=== PATIENT | female | born 1945 | race Caucasian/White ===

== ENCOUNTER 2023-06-28 14:09 | Observation (INO) | payer OTHER ==
--- OUTSIDE RECORDS SUMMARY | 2023-06-28 14:14 | XMS REPORT | Continuity of Care Document ---
:1945 Author Organization [facility] t Address [address] [place] [address] [address] [place] [address] Care Team Providers Name Role Phone Jose Miguel Dorman MD Primary Care Physician FOG_A_Provider Attending Clinician Unavailable Tristen Greenberg Attending Clinician Unavailable Jose Miguel Dorman V Attending Clinician Unavailable Kojo Centeno Attending Clinician [phone] Kojo Centeno Attending Clinician Unavailable Benny Vila MD Attending Clinician Esteban Martinez Attending Clinician Unavailable FOG_A_Provider Admitting Clinician Unavailable Tristen Greenberg Admitting Clinician Unavailable Jose Miguel Dorman V Admitting Clinician Unavailable Kojo Centeno Admitting Clinician Unavailable Physician, No Primary or Family Admitting Clinician Unavaila ble Payers Payer Name Policy Type Policy Number Effective Date Expiration Date S floresita MCCOLLUM (MEDICARE [id number] 2022 REPLACEMENT PPO) 00:00:00 EPISODE SOLUTIONS [id number] MEDICARE B-[place]: [id number] 2010 NOVITAS [employer]IONS 00:00:00 [employer] (INDEMNITY) [id number] 2002 00:00:00 Problems Condition Condition Condition Status Onset Resolution Last Treating Co mments Source Name Details Category Date Date Treatment Clinician Date Osteoarthr Osteoarthr Problem Active 2021-11 A zalea itis of itis of 0-28 [facility] left hip Left Hip 00:00: dic joint Joint 00 [facility] Low back Low Back Problem Active [facility] a pain Pain 6-16 [facility] 00:00: dic 00 [facility] 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 00 [facility] Back Back Problem Active [facility] fusion Fusion 2-03 [facility] 00:00: dic 00 [facility] Degenerati Degenerati Problem Active 2020-11 A zalea on of on of 2-30 [facility] lumbar Lumbar 00:00: dic interverte Interverte 00 Sp orts bral disc bral Disc Medi chad e Spinal Spinal Problem Active 2020-11 [facility] stenosis Stenosis 2-30 Orthop e of lumbar of Lumbar 00:00: dic region Region 00 [facility] Lumbar Lumbar Problem Active 2020-11 [facility] radiculopa Radiculopa 2-30 Or thope thy thy 00:00: dic 00 [facility] Idiopathic Idiopathic Problem Active 2020-11 A zalea scoliosis Scoliosis 2-30 Orth ope 00:00: dic 00 [facility] Strain of Strain of Problem Active Aza jorge calf Calf 9-23 [facility] muscle Muscle 00:00: dic 00 [facility] Essential Essential Disease Active 2016-11 [facility] hypertensi hypertensi 0-24 [facility] on on 00[facility]: [facility]osp[facility] 00 l Hyperlipid Hyperlipid Disease Active 2016-11 M [facility] emia emia 0-24 st 00:00: Hospita 00 l SOB SOB Disease Active 2016-11 [facility] (shortness (shortness 0-24 st of breath) of breath) 00:00: Ho spita 00 l Allergies, Adverse Reactions, Alerts Allergy Allergy Status Severity Reaction(s) Onset Inactive Treating Comm ents Source Name Type Date Date Clinician No Known DA Active U 2021-11 [facility] 2[facility]16 Clear Allergie 00:00: Wolf s 00 [facility] lactose FA Active SV ABDOMINAL 2021-11 [facility] PAIN 2-16 Clear 00:00: Wolf 00 [facility] No Known DA Active U [facility] 1-18 [place] Allergie 00:00: d s 00 [facility] No Known DA Active U [facility] [place] Lactose Allergy Active [facility] to [facility] substanc dic e Sports Medicin e Social History Social Habit Start Date Stop Date Quantity Comments Source Gender identity [facility] Sexual [facility] History of Social 2021-10-26 2021-10-[address] function 00:00:00 00:00:00 Hospital Tobacco use and 2021-10-26 2021-10-26 Smokeless [facility] 00:00:00 00:00:00 tobacco non-user Hospital Sex Assigned At [birth year] [facility] 00:[facility] Smoking Status Start Date Stop Date Source Never Smoker [facility] Medications Ordered Filled Start Stop Current Ordering Indication Dosage Frequency Signature Comments Components Source Medication Medication Date Date Medication? Clinician (SIG) Name Name DULoxetine Yes TAKE ONE [facility] (CYMBALTA) 8-[address] 60 MG 00:00: MOUTH [facility]osp[facility] capsule 00 TWICE A l DAY AT 12 HOUR INTERVALS DULoxetine Yes TAKE ONE [facility] (CYMBALTA) 8-[address] 60 MG 00:00: MOUTH [facility] capsule 00 TWICE A l DAY AT 12 HOUR INTERVALS DULoxetine Yes TAKE ONE [facility] (CYMBALTA) 8-[address] 60 MG 00:00: MOUTH [facility] capsule 00 TWICE A l DAY AT 12 HOUR INTERVALS DULoxetine Yes TAKE ONE [facility] (CYMBALTA) 8-[address] 60 MG 00:00: MOUTH [facility]osp[facility] capsule 00 TWICE A l DAY AT 12 HOUR INTERVALS levocetiriz Yes 5mg QD Take 5 mg M ethodi ine (XYZAL) 8-[address] 5 MG tablet 00:00: once Hospit a 00 daily. l levocetiriz 2017-0 Yes 5mg QD Take 5 mg M [facility]i ine (XYZAL) 8-[address] 5 MG tablet 00:00: once Hospit a 00 daily. l levocetiriz 2017-0 Yes 5mg QD Take 5 mg M ethodi ine (XYZAL) 8-[address] 5 MG tablet 00:00: once Hospit a 00 daily. l levocetiriz 2017-0 Yes 5mg QD Take 5 mg M ethodi ine (XYZAL) 8-[address] 5 MG tablet 00:00: once Hospit a 00 daily. l montelukast 2017-0 Yes 10mg QD Take 10 mg [facility] (SINGULAIR) 8-[address] 10 mg 00:00: once [facility]ospita tablet 00 daily. l montelukast 2017-0 Yes 10mg QD Take 10 mg [facility] (SINGULAIR) 8-[address] 10 mg 00:00: once [facility]ospita tablet 00 daily. l montelukast 2017-0 Yes 10mg QD Take 10 mg [facility] (SINGULAIR) 8-[address] 10 mg 00:00: once [facility]ospita tablet 00 daily. l montelukast 2017-0 Yes 10mg QD Take 10 mg [facility] (SINGULAIR) 8-[address] 10 mg 00:00: once [facility]ospita tablet 00 daily. l ascorbic ascorbic No ascorbic Aza jorge acid acid acid [facility] (vitamin C) (vitamin C) (vitamin dic 1,000 mg 1,000 mg C) 1,000 Spo rts tablet RX tablet RX mg tablet Medicin by other MD by other RX by e other aspirin 81 aspirin 81 No aspirin 81 [facility]indi mg mg mg [facility] tablet,kelli tablet,kelli tablet,del dic yed release yed release ayed S ports RX by other RX by other release RX Medicin MD CORNEJO by other e Centrgrzegorz Centrgrzegorz No Centrum Sindi Silver Silver Silver [facility] tablet RX tablet RX tablet RX dic by other by other by other Sports Medicania kelley ciprofloxac ciprofloxac No ciprofloxa Sindi in 500 mg in 500 mg chad 500 mg [facility] tablet TAKE tablet TAKE tablet dic 1 TABLET BY 1 TABLET BY TAKE 1 Sports MOUTH TWICE MOUTH TWICE TABLET BY Medicin A DAY A DAY MOUTH e TWICE A DAY clotrimazol clotrimazol No clotrimazo Sindi e-betametha e-betametha le-betamet Orthope sone 1 sone 1 hasone 1 dic %-0.05 % %-0.05 % %-0.05 % Spo rts topical topical topical Medici n cream cream cream e TOPICALLY TOPICALLY TOPICALLY TO FUNGAL TO FUNGAL TO FUNGAL SKIN SKIN SKIN LESIONS LESIONS LESIONS TWICE A DAY TWICE A DAY TWICE A DAY duloxetine duloxetine No duloxetine Sindi 60 mg 60 mg 60 mg [facility] capsule,del capsule,del capsule,de dic ayed ayed layed Sports release release release Medici n TAKE 1 TAKE 1 TAKE 1 e CAPSULE BY CAPSULE BY CAPSULE BY MOUTH EVERY MOUTH EVERY MOUTH 12 HOURS 12 HOURS EVERY 12 HOURS esomeprazol esomeprazol No esomeprazo Sindi e magnesium e magnesium le O r[facility]ope 20 mg 20 mg magnesium dic capsule,del capsule,del 20 mg Sports ayed ayed capsule,de Medicin release RX release RX layed e by other MD by other MD release RX by other MD ferrous ferrous No ferrous [facility]indi gluconate gluconate gluconate [facility] 324 mg (38 324 mg (38 324 mg (38 dic mg iron) mg iron) mg iron) Spo rts tablet TAKE tablet TAKE tablet Medicin 1 TABLET BY 1 TABLET BY TAKE 1 e MOUTH EVERY MOUTH EVERY TABLET BY DAY WITH DAY WITH MOUTH WATER OR WATER OR EVERY DAY JUICE JUICE WITH WATER BETWEEN BETWEEN OR JUICE MEALS MEALS BETWEEN MEALS gabapentin gabapentin No gabapentin Sindi 100 mg 100 mg 100 mg [facility] capsule capsule capsule dic TAKE 1 TAKE 1 TAKE 1 Sports CAPSULE BY CAPSULE BY CAPSULE BY Medicin MOUTH THREE MOUTH THREE MOUTH e TIMES A DAY TIMES A DAY THREE TIMES A DAY gabapentin gabapentin No gabapentin Sindi 300 mg 300 mg 300 mg [facility] capsule capsule capsule dic TAKE 1 TAKE 1 TAKE 1 Sports CAPSULE BY CAPSULE BY CAPSULE BY Medicin MOUTH THREE MOUTH THREE MOUTH e TIMES A DAY TIMES A DAY THREE TIMES A DAY hydrocodone hydrocodone No hydrocodon Sindi 10 10 e 10 [facility] mg-acetamin mg-acetamin mg-acetami dic ophen 325 ophen 325 nophen 325 Sports mg tablet mg tablet mg tablet Medicin TAKE 1 TAKE 1 TAKE 1 e TABLET BY TABLET BY TABLET BY MOUTH FOUR MOUTH FOUR MOUTH FOUR TIMES A DAY TIMES A DAY TIMES A FOR POST OP FOR POST OP DAY FOR PAIN PAIN POST OP PAIN levothyroxi levothyroxi No levothyrox Sindi ne 25 mcg ne 25 mcg ine 25 mcg [facility] tablet TAKE tablet TAKE tablet dic 1 TABLET BY 1 TABLET BY TAKE 1 Sports MOUTH EVERY MOUTH EVERY TABLET BY Medicin DAY IN THE DAY IN THE MOUTH e MORNING ON MORNING ON EVERY DAY EMPTY EMPTY IN THE STOMACH STOMACH MORNING ON EMPTY STOMACH methylpredn methylpredn No methylpred Sindi isolone 4 isolone 4 nisolone 4 [facility] mg tablets mg tablets mg tablets dic in a dose in a dose in a dose Sports pack TAKE 6 pack TAKE 6 pack TAKE Medicin TABLETS ON TABLETS ON 6 TABLETS e DAY 1 DAY 1 ON DAY 1 DIRECTED ON DIRECTED ON PACKAGE AND PACKAGE AND DIRECTED DECREASE BY DECREASE BY ON PACKAGE 1 TAB EACH 1 TAB EACH AND DAY FOR A DAY FOR A DECREASE TOTAL OF 6 TOTAL OF 6 BY 1 TAB DAYS DAYS EACH DAY FOR A TOTAL OF 6 DAYS montelukast montelukast No montelukas Sindi 10 mg 10 mg t 10 mg [facility] tablet TAKE tablet TAKE tablet dic 1 TABLET BY 1 TABLET BY TAKE 1 Sports MOUTH EVERY MOUTH EVERY TABLET BY Medicin DAY DAY MOUTH e EVERY DAY promethazin promethazin No promethazi Sindi e 25 mg e 25 mg ne 25 mg Ortho pe tablet TAKE tablet TAKE tablet dic 1 TABLET BY 1 TABLET BY TAKE 1 Sports MOUTH 3 MOUTH 3 TABLET BY Medi chad TIMES A DAY TIMES A DAY MOUTH 3 e NEEDED NEEDED TIMES A FOR NAUSEA FOR NAUSEA DAY AND AND NEEDED FOR VOMITING VOMITING NAUSEA AND VOMITING triamcinolo triamcinolo No triamcinol Sindi ne ne one [facility] acetonide acetonide acetonide dic 0.1 % 0.1 % 0.1 % Sports topical topical topical Medici n cream APPLY cream APPLY cream e TO AFFECTED TO AFFECTED APPLY TO AREA EVERY AREA EVERY AFFECTED DAY DAY AREA EVERY NEEDED NEEDED DAY NEEDED ascorbic ascorbic No ascorbic Aza jorge acid acid acid [facility] (vitamin C) (vitamin C) (vitamin dic 1,000 mg 1,000 mg C) 1,000 Spo rts tablet RX tablet RX mg tablet Medicin by other MD by devante CORNEJO RX by e other aspirin 81 aspirin 81 No aspirin 81 Sindi mg mg mg [facility] tablet,kelli tablet,kelli tablet,del dic yed release yed release ayed S ports TAKE 1 TAKE 1 release Medicin TABLET BY TABLET BY TAKE 1 e MOUTH TWICE MOUTH TWICE TABLET BY A DAY WITH A DAY WITH MOUTH FOOD TO FOOD TO TWICE A PREVENT DVT PREVENT DVT DAY WITH FOOD TO PREVENT DVT Cent[facility] Cent[facility] No Centrum [facility] Silver Silver Silver [facility] tablet RX tablet RX tablet RX dic by other MD by other MD by other Sports MD Medicin e ciprofloxac ciprofloxac No ciprofloxa Sindi in 500 mg in 500 mg chad 500 mg [facility] tablet TAKE tablet TAKE tablet dic 1 TABLET BY 1 TABLET BY TAKE 1 Sports MOUTH TWICE MOUTH TWICE TABLET BY Medicin A DAY A DAY MOUTH e TWICE A DAY clotrimazol clotrimazol No clotrimazo Sindi e-betametha e-betametha le-betamet [facility] sone 1 sone 1 hasone 1 dic %-0.05 % %-0.05 % %-0.05 % Spo rts topical topical topical Medici n cream cream cream e TOPICALLY TOPICALLY TOPICALLY TO FUNGAL TO FUNGAL TO FUNGAL SKIN SKIN SKIN LESIONS LESIONS LESIONS TWICE A DAY TWICE A DAY TWICE A DAY doxycycline doxycycline No doxycyclin Sindi hyclate 100 hyclate 100 e hyclate [facility] mg capsule mg capsule 100 mg d ic TAKE 1 TAKE 1 capsule Sports CAPSULE BY CAPSULE BY TAKE 1 M edicin MOUTH TWICE MOUTH TWICE CAPSULE BY e A DAY A DAY MOUTH TWICE A DAY duloxetine duloxetine No duloxetine Sindi 60 mg 60 mg 60 mg [facility] capsule,del capsule,del capsule,de dic ayed ayed layed Sports release release release Medici n TAKE 1 TAKE 1 TAKE 1 e CAPSULE BY CAPSULE BY CAPSULE BY MOUTH EVERY MOUTH EVERY MOUTH 12 HOURS 12 HOURS EVERY 12 HOURS esomeprazol esomeprazol No esomeprazo Sindi e magnesium e magnesium le O r[facility]ope 20 mg 20 mg magnesium dic capsule,del capsule,del 20 mg Sports ayed ayed capsule,de Medicin release RX release RX layed e by other MD by other MD release RX by other MD ferrous ferrous No ferrous Sindi gluconate gluconate gluconate [facility] 324 mg (38 324 mg (38 324 mg (38 dic mg iron) mg iron) mg iron) Spo rts tablet TAKE tablet TAKE tablet Medicin 1 TABLET BY 1 TABLET BY TAKE 1 e MOUTH EVERY MOUTH EVERY TABLET BY DAY WITH DAY WITH MOUTH WATER OR WATER OR EVERY DAY JUICE JUICE WITH WATER BETWEEN BETWEEN OR JUICE MEALS MEALS BETWEEN MEALS gabapentin gabapentin No gabapentin Sindi 100 mg 100 mg 100 mg [facility] capsule capsule capsule dic TAKE 1 TAKE 1 TAKE 1 Sports CAPSULE BY CAPSULE BY CAPSULE BY Medicin MOUTH THREE MOUTH THREE MOUTH e TIMES A DAY TIMES A DAY THREE TIMES A DAY gabapentin gabapentin No gabapentin Sindi 300 mg 300 mg 300 mg [facility] capsule capsule capsule dic TAKE 1 TAKE 1 TAKE 1 Sports CAPSULE BY CAPSULE BY CAPSULE BY Medicin MOUTH THREE MOUTH THREE MOUTH e TIMES A DAY TIMES A DAY THREE TIMES A DAY hydrocodone hydrocodone No hydrocodon Sindi 10 10 e 10 [facility] mg-acetamin mg-acetamin mg-acetami dic ophen 325 ophen 325 nophen 325 Sports mg tablet mg tablet mg tablet Medicin TAKE ONE TAKE ONE TAKE ONE e TABLET TABLET TABLET EVERY 6 EVERY 6 EVERY 6 HOURS ONLY HOURS ONLY HOURS ONLY FOR FOR FOR BREAKTHROUG BREAKTHROUG BREAKTHROU H PAIN H PAIN GH PAIN levothyroxi levothyroxi No levothyrox Sindi ne 25 mcg ne 25 mcg ine 25 mcg [facility] tablet TAKE tablet TAKE tablet dic 1 TABLET BY 1 TABLET BY TAKE 1 Sports MOUTH EVERY MOUTH EVERY TABLET BY Medicin DAY IN THE DAY IN THE MOUTH e MORNING ON MORNING ON EVERY DAY EMPTY EMPTY IN THE STOMACH STOMACH MORNING ON EMPTY STOMACH meloxicam meloxicam No meloxicam Sindi 15 mg 15 mg 15 mg [facility] tablet TAKE tablet TAKE tablet dic 1 TABLET BY 1 TABLET BY TAKE 1 Sports MOUTH EVERY MOUTH EVERY TABLET BY Medicin DAY DAY MOUTH e EVERY DAY methocarbam methocarbam No methocarba Sindi ol 500 mg ol 500 mg mol 500 mg [facility] tablet TAKE tablet TAKE tablet dic 1 TABLET BY 1 TABLET BY TAKE 1 Sports MOUTH 3 MOUTH 3 TABLET BY Medi chad TIMES A DAY TIMES A DAY MOUTH 3 e NEEDED NEEDED TIMES A FOR MUSCLE FOR MUSCLE DAY SPASMS SPASMS NEEDED FOR MUSCLE SPASMS methylpredn methylpredn No methylpred Sindi isolone 4 isolone 4 nisolone 4 [facility] mg tablets mg tablets mg tablets dic in a dose in a dose in a dose Sports pack TAKE 6 pack TAKE 6 pack TAKE Medicin TABLETS ON TABLETS ON 6 TABLETS e DAY 1 DAY 1 ON DAY 1 DIRECTED ON DIRECTED ON PACKAGE AND PACKAGE AND DIRECTED DECREASE BY DECREASE BY ON PACKAGE 1 TAB EACH 1 TAB EACH AND DAY FOR A DAY FOR A DECREASE TOTAL OF 6 TOTAL OF 6 BY 1 TAB DAYS DAYS EACH DAY FOR A TOTAL OF 6 DAYS montelukast montelukast No montelukas Sindi 10 mg 10 mg t 10 mg [facility] tablet TAKE tablet TAKE tablet dic 1 TABLET BY 1 TABLET BY TAKE 1 Sports MOUTH EVERY MOUTH EVERY TABLET BY Medicin DAY DAY MOUTH e EVERY DAY promethazin promethazin No promethazi Sindi e 25 mg e 25 mg ne 25 mg Ortho pe tablet TAKE tablet TAKE tablet dic 1 TABLET BY 1 TABLET BY TAKE 1 Sports MOUTH 3 MOUTH 3 TABLET BY Medi chad TIMES A DAY TIMES A DAY MOUTH 3 e NEEDED NEEDED TIMES A FOR NAUSEA FOR NAUSEA DAY AND AND NEEDED FOR VOMITING VOMITING NAUSEA AND VOMITING tramadol 50 tramadol 50 No tramadol Sindi mg tablet mg tablet 50 mg Orth ope TAKE 1 TAKE 1 tablet dic TABLET BY TABLET BY TAKE 1 Spo rts MOUTH EVERY MOUTH EVERY TABLET BY Medicin 4 HOURS 4 HOURS MOUTH e NEEDED FOR NEEDED FOR EVERY 4 PAIN PAIN HOURS NEEDED FOR PAIN triamcinolo triamcinolo No triamcinol Sindi ne ne one [facility] acetonide acetonide acetonide dic 0.1 % 0.1 % 0.1 % Sports topical topical topical Medici n cream APPLY cream APPLY cream e TO AFFECTED TO AFFECTED APPLY TO AREA EVERY AREA EVERY AFFECTED DAY DAY AREA EVERY NEEDED NEEDED DAY NEEDED ascorbic ascorbic No ascorbic Aza jorge acid acid acid [facility] (vitamin C) (vitamin C) (vitamin dic 1,000 mg 1,000 mg C) 1,000 Spo rts tablet RX tablet RX mg tablet Medicin by other by other RX by e other aspirin 81 aspirin 81 No aspirin 81 Sindi mg mg mg [facility] tablet,kelli tablet,kelli tablet,del dic yed release yed release ayed S ports TAKE 1 TAKE 1 release Medicin TABLET BY TABLET BY TAKE 1 e MOUTH TWICE MOUTH TWICE TABLET BY A DAY WITH A DAY WITH MOUTH FOOD TO FOOD TO TWICE A PREVENT DVT PREVENT DVT DAY WITH FOOD TO PREVENT DVT [facility] No Centrum Sindi Silver Silver Silver [facility] tablet RX tablet RX tablet RX dic by other by other MD by other Sports Medicin e ciprofloxac ciprofloxac No ciprofloxa Sindi in 500 mg in 500 mg chad 500 mg [facility] tablet TAKE tablet TAKE tablet dic 1 TABLET BY 1 TABLET BY TAKE 1 Sports MOUTH TWICE MOUTH TWICE TABLET BY Medicin A DAY A DAY MOUTH e TWICE A DAY clotrimazol clotrimazol No clotrimazo Sindi e-betametha e-betametha le-betamet [facility] sone 1 sone 1 hasone 1 dic %-0.05 % %-0.05 % %-0.05 % Spo rts topical topical topical Medici n cream cream cream e TOPICALLY TOPICALLY TOPICALLY TO FUNGAL TO FUNGAL TO FUNGAL SKIN SKIN SKIN LESIONS LESIONS LESIONS TWICE A DAY TWICE A DAY TWICE A DAY doxycycline doxycycline No doxycyclin Sindi hyclate 100 hyclate 100 e hyclate [facility] mg capsule mg capsule 100 mg d ic TAKE 1 TAKE 1 capsule Sports CAPSULE BY CAPSULE BY TAKE 1 M edicin MOUTH TWICE MOUTH TWICE CAPSULE BY e A DAY A DAY MOUTH TWICE A DAY duloxetine duloxetine No duloxetine Sindi 60 mg 60 mg 60 mg [facility] capsule,del capsule,del capsule,de dic ayed ayed layed Sports release release release Medici n TAKE 1 TAKE 1 TAKE 1 e CAPSULE BY CAPSULE BY CAPSULE BY MOUTH EVERY MOUTH EVERY MOUTH 12 HOURS 12 HOURS EVERY 12 HOURS esomeprazol esomeprazol No esomeprazo Sindi e magnesium e magnesium le [facility] 20 mg 20 mg magnesium dic capsule,del capsule,del 20 mg Sports ayed ayed capsule,de Medicin release RX release RX layed e by other MD by other MD release RX by other MD ferrous ferrous No ferrous Sindi gluconate gluconate gluconate [facility] 324 mg (38 324 mg (38 324 mg (38 dic mg iron) mg iron) mg iron) Spo rts tablet TAKE tablet TAKE tablet Medicin 1 TABLET BY 1 TABLET BY TAKE 1 e MOUTH EVERY MOUTH EVERY TABLET BY DAY WITH DAY WITH MOUTH WATER OR WATER OR EVERY DAY JUICE JUICE WITH WATER BETWEEN BETWEEN OR JUICE MEALS MEALS BETWEEN MEALS gabapentin gabapentin No gabapentin Sindi 100 mg 100 mg 100 mg [facility] capsule capsule capsule dic TAKE 1 TAKE 1 TAKE 1 Sports CAPSULE BY CAPSULE BY CAPSULE BY Medicin MOUTH THREE MOUTH THREE MOUTH e TIMES A DAY TIMES A DAY THREE TIMES A DAY gabapentin gabapentin No gabapentin Sindi 300 mg 300 mg 300 mg [facility] capsule capsule capsule dic TAKE 1 TAKE 1 TAKE 1 Sports CAPSULE BY CAPSULE BY CAPSULE BY Medicin MOUTH THREE MOUTH THREE MOUTH e TIMES A DAY TIMES A DAY THREE TIMES A DAY hydrocodone hydrocodone No hydrocodon Sindi 10 10 e 10 [facility] mg-acetamin mg-acetamin mg-acetami dic ophen 325 ophen 325 nophen 325 Sports mg tablet mg tablet mg tablet Medicin TAKE ONE TAKE ONE TAKE ONE e TABLET TABLET TABLET EVERY 6 EVERY 6 EVERY 6 HOURS ONLY HOURS ONLY HOURS ONLY FOR FOR FOR BREAKTHROUG BREAKTHROUG BREAKTHROU H PAIN H PAIN GH PAIN levothyroxi levothyroxi No levothyrox Sindi ne 25 mcg ne 25 mcg ine 25 mcg [facility] tablet TAKE tablet TAKE tablet dic 1 TABLET BY 1 TABLET BY TAKE 1 Sports MOUTH EVERY MOUTH EVERY TABLET BY Medicin DAY IN THE DAY IN THE MOUTH e MORNING ON MORNING ON EVERY DAY EMPTY EMPTY IN THE STOMACH STOMACH MORNING ON EMPTY STOMACH meloxicam meloxicam No meloxicam Sindi 15 mg 15 mg 15 mg [facility] tablet TAKE tablet TAKE tablet dic 1 TABLET BY 1 TABLET BY TAKE 1 Sports MOUTH EVERY MOUTH EVERY TABLET BY Medicin DAY DAY MOUTH e EVERY DAY methocarbam methocarbam No methocarba Sindi ol 500 mg ol 500 mg mol 500 mg [facility] tablet TAKE tablet TAKE tablet dic 1 TABLET BY 1 TABLET BY TAKE 1 Sports MOUTH 3 MOUTH 3 TABLET BY Medi chad TIMES A DAY TIMES A DAY MOUTH 3 e NEEDED NEEDED TIMES A FOR MUSCLE FOR MUSCLE DAY SPASMS SPASMS NEEDED FOR MUSCLE SPASMS methylpredn methylpredn No methylpred Sindi isolone 4 isolone 4 nisolone 4 [facility] mg tablets mg tablets mg tablets dic in a dose in a dose in a dose Sports pack TAKE 6 pack TAKE 6 pack TAKE Medicin TABLETS ON TABLETS ON 6 TABLETS e DAY 1 DAY 1 ON DAY 1 DIRECTED ON DIRECTED ON PACKAGE AND PACKAGE AND DIRECTED DECREASE BY DECREASE BY ON PACKAGE 1 TAB EACH 1 TAB EACH AND DAY FOR A DAY FOR A DECREASE TOTAL OF 6 TOTAL OF 6 BY 1 TAB DAYS DAYS EACH DAY FOR A TOTAL OF 6 DAYS montelukast montelukast No montelukas Sindi 10 mg 10 mg t 10 mg [facility] tablet TAKE tablet TAKE tablet dic 1 TABLET BY 1 TABLET BY TAKE 1 Sports MOUTH EVERY MOUTH EVERY TABLET BY Medicin DAY DAY MOUTH e EVERY DAY promethazin promethazin No promethazi Sindi e 25 mg e 25 mg ne 25 mg Orth[facility] pe tablet TAKE tablet TAKE tablet dic 1 TABLET BY 1 TABLET BY TAKE 1 Sports MOUTH 3 MOUTH 3 TABLET BY Medi chad TIMES A DAY TIMES A DAY MOUTH 3 e NEEDED NEEDED TIMES A FOR NAUSEA FOR NAUSEA DAY AND AND NEEDED FOR VOMITING VOMITING NAUSEA AND VOMITING tramadol 50 tramadol 50 No tramadol Sindi mg tablet mg tablet 50 mg Orth ope TAKE 1 TAKE 1 tablet dic TABLET BY TABLET BY TAKE 1 Spo rts MOUTH EVERY MOUTH EVERY TABLET BY Medicin 4 HOURS 4 HOURS MOUTH e NEEDED FOR NEEDED FOR EVERY 4 PAIN PAIN HOURS NEEDED FOR PAIN triamcinolo triamcinolo No triamcinol Sindi ne ne one [facility] acetonide acetonide acetonide dic 0.1 % 0.1 % 0.1 % Sports topical topical topical Medici n cream APPLY cream APPLY cream e TO AFFECTED TO AFFECTED APPLY TO AREA EVERY AREA EVERY AFFECTED DAY DAY AREA EVERY NEEDED NEEDED DAY NEEDED ascorbic ascorbic No ascorbic Aza jorge acid acid acid [facility] (vitamin C) (vitamin C) (vitamin dic 1,000 mg 1,000 mg C) 1,000 Spo rts tablet RX tablet RX mg tablet Medicin by other MD by other MD RX by e other aspirin 81 aspirin 81 No aspirin 81 Sindi mg mg mg [facility] tablet,kelli tablet,kelli tablet,del dic yed release yed release ayed S ports RX by other RX by other release RX Medicin MD by other e Centrum Centrum No Centrum Sindi Silver Silver Silver [facility] tablet RX tablet RX tablet RX dic by other MD by other MD by other Sports MD Medicin e ciprofloxac ciprofloxac No ciprofloxa Sindi in 500 mg in 500 mg chad 500 mg [facility] tablet TAKE tablet TAKE tablet dic 1 TABLET BY 1 TABLET BY TAKE 1 Sports MOUTH TWICE MOUTH TWICE TABLET BY Medicin A DAY A DAY MOUTH e TWICE A DAY clotrimazol clotrimazol No clotrimazo Sindi e-betametha e-betametha le-betamet [facility] sone 1 sone 1 hasone 1 dic %-0.05 % %-0.05 % %-0.05 % Spo rts topical topical topical Medici n cream cream cream e TOPICALLY TOPICALLY TOPICALLY TO FUNGAL TO FUNGAL TO FUNGAL SKIN SKIN SKIN LESIONS LESIONS LESIONS TWICE A DAY TWICE A DAY TWICE A DAY duloxetine duloxetine No duloxetine Sindi 60 mg 60 mg 60 mg [facility] capsule,del capsule,del capsule,de dic ayed ayed layed Sports release release release Medici n TAKE 1 TAKE 1 TAKE 1 e CAPSULE BY CAPSULE BY CAPSULE BY MOUTH EVERY MOUTH EVERY MOUTH 12 HOURS 12 HOURS EVERY 12 HOURS esomeprazol esomeprazol No esomeprazo Sindi e magnesium e magnesium le [facility] 20 mg 20 mg magnesium dic capsule,del capsule,del 20 mg Sports ayed ayed capsule,de Medicin release RX release RX layed e by other MD by other MD release RX by other MD ferrous ferrous No ferrous Sindi gluconate gluconate gluconate [facility] 324 mg (38 324 mg (38 324 mg (38 dic mg iron) mg iron) mg iron) Spo rts tablet TAKE tablet TAKE tablet Medicin 1 TABLET BY 1 TABLET BY TAKE 1 e MOUTH EVERY MOUTH EVERY TABLET BY DAY WITH DAY WITH MOUTH WATER OR WATER OR EVERY DAY JUICE JUICE WITH WATER BETWEEN BETWEEN OR JUICE MEALS MEALS BETWEEN MEALS gabapentin gabapentin No gabapentin Sindi 100 mg 100 mg 100 mg [facility] capsule capsule capsule dic TAKE 1 TAKE 1 TAKE 1 Sports CAPSULE BY CAPSULE BY CAPSULE BY Medicin MOUTH THREE MOUTH THREE MOUTH e TIMES A DAY TIMES A DAY THREE TIMES A DAY gabapentin gabapentin No gabapentin Sindi 300 mg 300 mg 300 mg [facility] capsule capsule capsule dic TAKE 1 TAKE 1 TAKE 1 Sports CAPSULE BY CAPSULE BY CAPSULE BY Medicin MOUTH THREE MOUTH THREE MOUTH e TIMES A DAY TIMES A DAY THREE TIMES A DAY hydrocodone hydrocodone No hydrocodon Sindi 10 10 e 10 [facility] mg-acetamin mg-acetamin mg-acetami dic ophen 325 ophen 325 nophen 325 Sports mg tablet mg tablet mg tablet Medicin TAKE 1 TAKE 1 TAKE 1 e TABLET BY TABLET BY TABLET BY MOUTH FOUR MOUTH FOUR MOUTH FOUR TIMES A DAY TIMES A DAY TIMES A FOR POST OP FOR POST OP DAY FOR PAIN PAIN POST OP PAIN levothyroxi levothyroxi No levothyrox Sindi ne 25 mcg ne 25 mcg ine 25 mcg [facility] tablet TAKE tablet TAKE tablet dic 1 TABLET BY 1 TABLET BY TAKE 1 Sports MOUTH EVERY MOUTH EVERY TABLET BY Medicin DAY IN THE DAY IN THE MOUTH e MORNING ON MORNING ON EVERY DAY EMPTY EMPTY IN THE STOMACH STOMACH MORNING ON EMPTY STOMACH methylpredn methylpredn No methylpred Sindi isolone 4 isolone 4 nisolone 4 Orthope mg tablets mg tablets mg tablets dic in a dose in a dose in a dose Sports pack TAKE 6 pack TAKE 6 pack TAKE Medicin TABLETS ON TABLETS ON 6 TABLETS e DAY 1 DAY 1 ON DAY 1 DIRECTED ON DIRECTED ON PACKAGE AND PACKAGE AND DIRECTED DECREASE BY DECREASE BY ON PACKAGE 1 TAB EACH 1 TAB EACH AND DAY FOR A DAY FOR A DECREASE TOTAL OF 6 TOTAL OF 6 BY 1 TAB DAYS DAYS EACH DAY FOR A TOTAL OF 6 DAYS montelukast montelukast No montelukas Sindi 10 mg 10 mg t 10 mg [facility] tablet RX tablet RX tablet RX dic by other by other by other Sports MD Yolette kelley promethazin promethazin No promethazi Sindi e 25 mg e 25 mg ne 25 mg Ortho pe tablet TAKE tablet TAKE tablet dic 1 TABLET BY 1 TABLET BY TAKE 1 Sports MOUTH 3 MOUTH 3 TABLET BY Medi chad TIMES A DAY TIMES A DAY MOUTH 3 e NEEDED NEEDED TIMES A FOR NAUSEA FOR NAUSEA DAY AND AND NEEDED FOR VOMITING VOMITING NAUSEA AND VOMITING triamcinolo triamcinolo No triamcinol Sindi ne ne one [facility] acetonide acetonide acetonide dic 0.1 % 0.1 % 0.1 % Sports topical topical topical Medici n cream APPLY cream APPLY cream e TO AFFECTED TO AFFECTED APPLY TO AREA EVERY AREA EVERY AFFECTED DAY DAY AREA EVERY NEEDED NEEDED DAY NEEDED ascorbic ascorbic No ascorbic Aza jorge acid acid acid [facility] (vitamin C) (vitamin C) (vitamin dic 1,000 mg 1,000 mg C) 1,000 Spo rts tablet RX tablet RX mg tablet Medicin by other MD by other MD RX by e devante CORNEJO aspirin 81 aspirin 81 No aspirin 81 Sindi mg mg mg [facility] tablet,kelli tablet,kelli tablet,del dic yed release yed release ayed S ports RX by other RX by other release RX Yolette CORNEJO MD by other e Centrum Centrum No Centrum Sindi Silver Silver Silver [facility] tablet RX tablet RX tablet RX dic by other by other by other Sports MD Yolette kelley ciprofloxac ciprofloxac No ciprofloxa Sindi in 500 mg in 500 mg chad 500 mg [facility] tablet TAKE tablet TAKE tablet dic 1 TABLET BY 1 TABLET BY TAKE 1 Sports MOUTH TWICE MOUTH TWICE TABLET BY Medicin A DAY A DAY MOUTH e TWICE A DAY clotrimazol clotrimazol No clotrimazo Sindi e-betametha e-betametha le-betamet Orth[facility] sone 1 sone 1 hasone 1 dic %-0.05 % %-0.05 % %-0.05 % Spo rts topical topical topical Medici n cream cream cream e TOPICALLY TOPICALLY TOPICALLY TO FUNGAL TO FUNGAL TO FUNGAL SKIN SKIN SKIN LESIONS LESIONS LESIONS TWICE A DAY TWICE A DAY TWICE A DAY duloxetine duloxetine No duloxetine Sindi 60 mg 60 mg 60 mg [facility] capsule,del capsule,del capsule,de dic ayed ayed layed Sports release release release Medici n TAKE 1 TAKE 1 TAKE 1 e CAPSULE BY CAPSULE BY CAPSULE BY MOUTH EVERY MOUTH EVERY MOUTH 12 HOURS 12 HOURS EVERY 12 HOURS esomeprazol esomeprazol No esomeprazo Sindi e magnesium e magnesium le O rthope 20 mg 20 mg magnesium dic capsule,del capsule,del 20 mg Sports ayed ayed capsule,de Medicin release RX release RX layed e by other MD by other MD release RX by other MD ferrous ferrous No ferrous Sindi gluconate gluconate gluconate [facility] 324 mg (38 324 mg (38 324 mg (38 dic mg iron) mg iron) mg iron) Spo rts tablet TAKE tablet TAKE tablet Medicin 1 TABLET BY 1 TABLET BY TAKE 1 e MOUTH EVERY MOUTH EVERY TABLET BY DAY WITH DAY WITH MOUTH WATER OR WATER OR EVERY DAY JUICE JUICE WITH WATER BETWEEN BETWEEN OR JUICE MEALS MEALS BETWEEN MEALS gabapentin gabapentin No gabapentin Sindi 100 mg 100 mg 100 mg [facility] capsule capsule capsule dic TAKE 1 TAKE 1 TAKE 1 Sports CAPSULE BY CAPSULE BY CAPSULE BY Medicin MOUTH THREE MOUTH THREE MOUTH e TIMES A DAY TIMES A DAY THREE TIMES A DAY gabapentin gabapentin No 1capsul TID gabapentin Sindi 300 mg 300 mg e(s) 300 mg [facility] capsule capsule capsule dic Take 1 Take 1 Take 1 Sports capsule 3 capsule 3 capsule 3 Medicin times a day times a day times a e by oral by oral day by route. TAKE route. TAKE oral route. INDICATED INDICATED TAKE BY DOCTOR BY DOCTOR INDICATED BY DOCTOR hydrocodone hydrocodone No hydrocodon Sindi 10 10 e 10 [facility] mg-acetamin mg-acetamin mg-acetami dic ophen 325 ophen 325 nophen 325 Sports mg tablet mg tablet mg tablet Medicin TAKE 1 TAKE 1 TAKE 1 e TABLET BY TABLET BY TABLET BY MOUTH FOUR MOUTH FOUR MOUTH FOUR TIMES A DAY TIMES A DAY TIMES A FOR POST OP FOR POST OP DAY FOR PAIN PAIN POST OP PAIN methylpredn methylpredn No methylpred Sindi isolone 4 isolone 4 nisolone 4 [facility] mg tablets mg tablets mg tablets dic in a dose in a dose in a dose Sports pack TAKE 6 pack TAKE 6 pack TAKE Medicin TABLETS ON TABLETS ON 6 TABLETS e DAY 1 DAY 1 ON DAY 1 DIRECTED ON DIRECTED ON PACKAGE AND PACKAGE AND DIRECTED DECREASE BY DECREASE BY ON PACKAGE 1 TAB EACH 1 TAB EACH AND DAY FOR A DAY FOR A DECREASE TOTAL OF 6 TOTAL OF 6 BY 1 TAB DAYS DAYS EACH DAY FOR A TOTAL OF 6 DAYS montelukast montelukast No montelukas Sindi 10 mg 10 mg t 10 mg [facility] tablet RX tablet RX tablet RX dic by other MD by other MD by other Sports MD Medicin e triamcinolo triamcinolo No triamcinol Sindi ne ne one Orthope acetonide acetonide acetonide dic 0.1 % 0.1 % 0.1 % Sports topical topical topical Medici n cream APPLY cream APPLY cream e TO AFFECTED TO AFFECTED APPLY TO AREA EVERY AREA EVERY AFFECTED DAY DAY AREA EVERY NEEDED NEEDED DAY NEEDED Immunizations Ordered Immunization Filled Immunization Date Status Commen ts Source Name Name Pick a Student MARAHAnais [facility] 2020-11-23 Completed Meth odist VACCINATION 00:00:00 [facility] COVID-19 MRNA 2020-11-23 Completed Meth odist VACCINATION 00:00:00 [facility] COVID-19 [facility] 2020-11-23 Completed Meth odist VACCINATION 00:00:00 [facility] COVID-19 MRNA 2020-11-23 Completed Meth odist VACCINATION 00:00:00 Hospital Vital Signs Vital Name Observation Time Observation Value Comments Source Height 2022-12-12 00:00:00 63 [in_i] [facility] BMI (Body Mass 2022-12-12 00:00:00 29.9 kg/m2 [facility] Index) Sports Medicine Body Weight 2022-12-12 00:00:00 169 [lb_av] [facility] Height 2022-11-14 00:00:00 63 [in_i] [facility] BMI (Body Mass 2022-11-14 00:00:00 29.9 kg/m2 [facility] Index) Sports Medicine Body Weight 2022-11-14 00:00:00 169 [lb_av] [facility] Height 2022-09-02 00:00:00 63 [in_i] [facility] BMI (Body Mass 2022-09-02 00:00:00 29.9 kg/m2 [facility] Index) Sports Medicine Body Weight 2022-09-02 00:00:00 169 [lb_av] [facility] Height 2022-04-21 00:00:00 63 [in_i] [facility] BMI (Body Mass 2022-04-21 00:00:00 23.9 kg/m2 [facility] Index) Sports Medicine Body Weight 2022-04-21 00:00:00 135 [lb_av] [facility] Systolic blood 2021-10-26 20:30:00 192 mm[Hg] Method is Hospital pressure Diastolic blood 2021-10-26 20:30:00 85 mm[Hg] Metho dist Hospital pressure Heart rate 2021-10-26 20:30:00 87 /min [facility] Body height 2021-10-26 20:28:00 160 cm [facility] Body weight 2021-10-26 20:28:00 81.647 kg [facility] BMI 2021-10-26 20:28:00 31.89 kg/m2 [facility] Procedures Procedure Date / Time Performing Clinician Source Performed XR, hip + pelvis, 2022-12-12 00:00:00 Sindi Orchencho hopedic unilateral, 2 or 3 view Sports M edicine [id number] 2022-10-27 00:00:00 [facility] Total Replacement of 2022-10-27 00:00:00 [facility]opedic Left Hip Joint Sports Medicine XR, hip + pelvis, 2022-09-02 00:00:00 Sindi Orchencho hopedic unilateral, 2 or 3 view Sports M edicine RADEX SPI LUMBOSAC 2022-04-21 00:00:00 [facility] 4 VIEWS Sports Medicine [id number] 2021-11-24 00:00:00 [facility] [id number] 2021-11-24 00:00:00 [facility] [id number] 2021-11-24 00:00:00 [facility] [id number] 2021-11-23 00:00:00 [facility] [id number] 2021-11-23 00:00:00 [facility] [id number] 2021-11-23 00:00:00 [facility] [id number] 2021-11-23 00:00:00 [facility] Back Surgery [facility] Hysterectomy [facility] Wrist Surgery [facility] Plan of Care Planned Activity Planned Date Details Comments Source Future Scheduled Test 2023-06-07 Hepatitis C screening [facility] 03:48:03 (procedure) [code = 017461875] Future Scheduled Test 2023-06-07 SHINGLES VACCINES ([address] [place] [address] 03:48:03 of 2) [code = SHINGLES VACCINES (1 of 2)] Future Scheduled Test 2023-06-07 65+ PNEUMOCOCCAL [facility] 03:48:03 VACCINE (1 - PCV) [code = 65+ PNEUMOCOCCAL VACCINE (1 - PCV)] Future Scheduled Test 2023-06-07 COVID-19 VACCINE (2 - [facility] 03:48:03 Pfizer series) [code = COVID-19 VACCINE (2 - Pfizer series)] Future Scheduled Test 2023-06-07 INFLUENZA VACCINE [facility] 03:48:03 [code = INFLUENZA VACCINE] Future Scheduled Test 2022-10-19 Hepatitis C screening [facility] 03:53:28 (procedure) [code = [id number]] Future Scheduled Test 2022-10-19 SHINGLES VACCINES ([address] [place] [address] 03:53:28 of 2) [code = SHINGLES VACCINES (1 of 2)] Future Scheduled Test 2022-10-19 65+ PNEUMOCOCCAL [facility] 03:53:28 VACCINE (1 - PCV) [code = 65+ PNEUMOCOCCAL VACCINE (1 - PCV)] Future Scheduled Test 2022-10-19 COVID-19 VACCINE (2 - [facility] 03:53:28 Pfizer series) [code = COVID-19 VACCINE (2 - Pfizer series)] Future Scheduled Test 2022-10-19 INFLUENZA VACCINE [facility] 03:53:28 [code = INFLUENZA VACCINE] Future Scheduled Test 2022-10-19 Hepatitis C screening [facility] 03:53:28 (procedure) [code = [id number]] Future Scheduled Test 2022-10-19 SHINGLES VACCINES (1 [facility] 03:53:28 of 2) [code = SHINGLES VACCINES (1 of 2)] Future Scheduled Test 2022-10-19 65+ PNEUMOCOCCAL [facility] 03:53:28 VACCINE (1 - PCV) [code = 65+ PNEUMOCOCCAL VACCINE (1 - PCV)] Future Scheduled Test 2022-10-19 COVID-19 VACCINE (2 [facility] 03:53:28 Pfizer series) [code = COVID-19 VACCINE (2 - Pfizer series)] Future Scheduled Test 2022-10-19 INFLUENZA VACCINE [facility] 03:53:28 [code = INFLUENZA VACCINE] Future Scheduled Test 2022-09-07 HEPATITIS B VACCINES [facility] 04:13:14 (1 of 3 - 3-dose series) [code = HEPATITIS B VACCINES (1 of 3 - 3-dose series)] Future Scheduled Test 2022-09-07 Hepatitis C screening [facility] 04:13:14 (procedure) [code = [id number]] Future Scheduled Test 2022-09-07 SHINGLES VACCINES (1 [facility] 04:13:14 of 2) [code = SHINGLES VACCINES (1 of 2)] Future Scheduled Test 2022-09-07 65+ PNEUMOCOCCAL [facility] 04:13:14 VACCINE (1 - PCV) [code = 65+ PNEUMOCOCCAL VACCINE (1 - PCV)] Future Scheduled Test 2022-09-07 COVID-19 VACCINE (2 [facility] 04:13:14 Pfizer series) [code = COVID-19 VACCINE (2 - Pfizer series)] Future Scheduled Test 2022-09-07 INFLUENZA VACCINE [facility] 04:13:14 [code = INFLUENZA VACCINE] Instructions [facility] Encounters Start End Encounter Admission Attending Care Care Encounter Source Date/Time Date/Time Type Type Clinicians Facility Department ID 2023-02-09 2023-02-09 Outpatient FOG_A_Provi AOSM AOSM [id number] Sindi 00:00:00 00:00:00 conor [id number] Orthop e dic Sports Medicin e 2022-12-12 2022-12-12 Tristen N [place]OSM [place] - Ortho [id number] Sindi 00:00:00 00:00:00 Yajaira Greenberg MD: 7401 [place] [facility] [place] [address] , Ph. [phone] 2022-12-10 2022-12-10 Outpatient FOG_A_Provi AOSM AOSM [id number] Sindi 00:00:00 00:00:00 conor [id number] Orthop e dic Sports Medicin e 2022-12-10 2022-12-10 Outpatient FOG_A_Provi AOSM AOSM 580 [id number] Sindi 00:00:00 00:00:00 conor [id number] Orthop e dic Sports Medicin e 2022-12-03 2022-12-03 Outpatient FOG_A_Provi AOSM AOSM 580 [id number] Sindi 00:00:00 00:00:00 conor [id number] Orthop e dic Sports Medicin e 2022-12-03 2022-12-03 Outpatient FOG_A_Provi AOSM AOSM 580 [id number] Sindi 00:00:00 00:00:00 conor [id number] Orthop e dic Sports Medicin e 2022-11-14 2022-11-14 Outpatient FOG_A_Provi AOSM AOSM [id number] Sindi 00:00:00 00:00:00 conor [id number] Orthop e dic Sports Medicin e 2022-11-14 2022-11-14 Tristen N [place]OSM [place] - Ortho [id number] Sindi 00:00:00 00:00:00 Yajaira Greenberg MD: [address] FOG_Ofc dic [facility] e [address] , Ph. [phone] 2022-10-27 2022-10-28 Inpatient JORGE HeadleyTO SURG [id number] [facility] 08:18:00 12:11:00 Tristen 95 [place] [facility] 2022-10-27 2022-10-27 Outpatient FOG_A_Provi AOSM AOSM [id number] Sindi 00:00:00 00:00:00 conor [id number] Orthop e dic Sports Medicin e 2022-10-27 2022-10-27 Outpatient FOG_A_Provi AOSM AOSM 580 [id number] Sindi 00:00:00 00:00:00 conor [id number] Orthop e dic Sports Medicin e 2022-10-27 2022-10-27 Outpatient FOG_A_Provi AOSM AOSM [id number] Sindi 00:00:00 00:00:00 conor [id number] Orthop e dic Sports Medicin e 2022-10-27 2022-10-27 Tristen N [place]OSM [place] - Ortho [id number] Sindi 00:00:00 00:00:00 Yajaira Greenberg MD: 7401 FOG_Surgery dic [facility] e [address] , Ph. [phone] 2022-10-21 2022-10-21 Outpatient RADHA Greenberg DAPHNE LABO [id number] [facility] 16:48:00 16:48:00 Trisetn 24 [facility] 2022-10-21 2022-10-21 Outpatient JORGE HeadleyJULIEN 3DAY [id number] [facility] 09:00:00 10:00:00 Tristen 49 [place] [facility] 2022-10-14 2022-10-14 Outpatient FOG_A_Provi AOSM AOSM [id number] Sindi 00:00:00 00:00:00 conor [id number] Orthop e dic Sports Medicin e 2022-10-14 2022-10-14 Outpatient FOG_A_Provi AOSM AOSM 580 [id number] Sindi 00:00:00 00:00:00 conor [id number] Orthop e dic Sports Medicin e 2022-10-14 2022-10-14 Outpatient FOG_A_Provi AOSM AOSM 580 [id number] Sindi 00:00:00 00:00:00 conor [id number] Orthop e dic Sports Medicin e 2022-09-25 2022-09-25 Outpatient FOG_A_Provi AOSM AOSM [id number] Sindi 00:00:00 00:00:00 conor [id number] Orthop e dic Sports Medicin e 2022-09-23 2022-09-23 Outpatient FOG_A_Provi AOSM AOSM 580 [id number] Sindi 00:00:00 00:00:00 conor [id number] Orthop e dic Sports Medicin e 2022-09-12 2022-09-12 Outpatient RADHA Dorman [facility] [id number] [facility] 08:00:00 08:00:00 Jose Miguel Iniguez [facility] [place] 2022-09-02 2022-09-02 Outpatient FOG_A_Provi AOSM AOSM [id number] Sindi 00:00:00 00:00:00 conor [id number] Orthop e dic Sports Medicin e 2022-09-02 2022-09-02 Tristen N [place]OSM [place] - Ortho [id number] Sindi 00:00:00 00:00:00 Yajaira Greenberg MD: 7401 FOG_Ofc dic [facility] [place] [address] , Ph. [phone] 2022-09-01 2022-09-01 Outpatient FOG_A_Provi AOSM AOSM 580 [id number] Sindi 00:00:00 00:00:00 conor [id number] Orthop e dic Sports Medicin e 2022-08-29 2022-08-29 Outpatient FOG_A_Provi AOSM AOSM 580 [id number] Sindi 00:00:00 00:00:00 conor [id number] Orthop e dic Sports Medicin e 2022-04-22 2022-04-22 Outpatient FOG_A_Provi AOSM AOSM 580 [id number] Sindi 00:00:00 00:00:00 conor [id number] Orthop e dic Sports Medicin e 2022-04-21 2022-04-21 Outpatient FOG_A_Provi AOSM AOSM 580 [id number] Sindi 10:35:00 10:35:00 conor [id number] Orthop e dic Sports Medicin e 2022-04-21 2022-04-21 Kojo Freedman [place]OSM [place] - [place] [id number] [facility] 00:00:00 00:00:00 MD Jason: Yajaira Voss - Orthope [address] FOG_Ofc dic [facility] [place] [address] , Ph. [phone] 2022-04-21 2022-04-21 Outpatient SOTERO Centeno AOSM [id number] 00:00:00 00:00:00 Kojo Freedman [id number] 2022-04-20 2022-04-20 Outpatient FOG_A_Provi AOSM AOSM 580 [id number] Sindi 12:11:00 12:11:00 conor [id number] Orthop e dic Sports Medicin e 2022-04-05 2022-04-05 Outpatient FOG_A_Provi AOSM AOSM 580 [id number] Sindi 12:26:00 12:26:00 conor [id number] Orthop e dic Sports Medicin e 2021-11-23 2021-11-28 Inpatient RADHA Centeno ЕЛЕНА ADMI [id number] [facility] 08:03:00 16:33:00 Kojo 23 [place] [facility] 2021-11-16 2021-11-16 Outpatient RADHA Centeno ЕЛЕНА 3DAY [id number] [facility] 09:00:00 23:00:00 Kojo 02 [place] [facility] 2021-11-16 2021-11-16 Outpatient JasonJORGE SIST [id number] [facility] 18:26:00 18:26:00 Kojo 54 [facility] 2021-11-16 2021-11-16 Outpatient Jason JORGE LABO [id number] [facility] 18:25:00 18:25:00 Kojo 23 [facility] 2021-10-26 2021-10-26 Office [place], 1.2.840.1 [id number] [facility] 15:15:00 15:35:15 Visit Benny Angulo [address]274.1.[address] 3.430.2.7 Hospit a .3.249849 l .8 2021-10-26 2021-10-26 Travel 1.2.840.1 1.2.840.517 [id number] [facility] 00:00:00 00:00:[address] 3.430.2.7 0.2.7.3.698 Ho spita .3.035137 084.8 l .8 2021-10-19 2021-10-19 Outpatient [facility] [id number] [facility] 11:25:00 11:25:[address] [place] [address] Orthope [facility] 2021-09-27 2021-09-27 Travel 1.2.840.1 1.2.138.691 [id number] [id number] [facility]i 00:00:00 00:00:[address] 3.430.2.7 0.2.7.3.698 Ho spita .3.815185 084.8 l .8 2021-09-08 2021-09-08 Outpatient RADHA Dorman [facility] [id number] [facility] 08:00:00 08:00:00 Jose Miguel [id number] [facility] [place] 2020-12-14 2020-12-14 Outpatient [facility] [id number] [facility] 00:00:00 00:00:[address] 2020-11-23 2020-11-23 Outpatient [facility] [id number] [facility] 00:00:00 00:00:[address] 2020-05-20 2020-05-20 Outpatient RADHA Martinez [facility] [id number] [facility] 12:00:00 12:00:00 Esteban [id number] [facility] Results Test Description Test Time Test Comments Results Result Sour e Comments - XR PELVIS 11/072022-10-28 VIEWS 08:01:[facility] 1945 Sex: F Patient Name: CHAVO MARTIN Unit No: [id number] EXAMS: CPT CODE: [id number] XR PELVIS 1/2 VIEWS 00502 AP VIEW OF THE PELVIS. COMMENT: In progress total left hip arthroplasty. AP view of the pelvis COMMENT: COMPARISON: No prior exams available. Completed total left hip arthroplasty. Prosthesis appears to be in good position. at 0801 Reported and signed by: Parveen Lemons M.D. CC: Jose Miguel Dorman MD; Tristen Greenberg; Kojo Centeno M.D. Technologist: SONIYA BARR ARRT Transcribed D/ (800) [place] NAME: CHAVO MARTIN [address] [facility] PHYS: Tristen Vazquez MD : 1945 AGE: 77 SEX: F [place], [place] [address] LOC: Y.310 A PHONE #: [phone] EXAM DATE: 10/27/2022 STATUS: ADM IN FAX #: [phone] RAD #: D/C DT PAGE 1 Signed Report Patient Name: CHAVO MARTIN Unit No: [id number] EXAMS: CPT CODE: [id number] XR PELVIS 1/2 VIEWS 87813 (Continued) Orig Print D/T: S: 10/28/2022 (0805) [facility] NAME: CHAVO MARTIN [address] [facility] PHYS: Tristen Vazquez MD : 1945 AGE: 77 SEX: F [place], [place] [address] LOC: Y.310 A PHONE #: [phone] EXAM DATE: 10/27/2022 STATUS: ADM IN FAX #: [phone] RAD #: D/C DT PAGE 2 Signed Report - XR PELVIS /2022-10-28 VIEWS 08:01:00 [facility] 1945 Sex: F Patient Name: CHAVO MARTIN Unit No: [id number] EXAMS: CPT CODE: [id number] XR PELVIS 11/07 VIEWS 26651 AP VIEW OF THE PELVIS. COMMENT: In progress total left hip arthroplasty. AP view of the pelvis COMMENT: COMPARISON: No prior exams available. Completed total left hip arthroplasty. Prosthesis appears to be in good position. at 0801 Reported and signed by: Parveen Lemons M.D. CC: Jose Miguel Dorman MD; Tristen Greenberg; Kojo Centeno M.D. Technologist: Joshua Alvarez(Cassie) Transcribed D/ (800) [facility] NAME: CHAVO MARTIN [address] PHYS: Tristen Vazquez MD : 1945 AGE: 77 SEX: F [place], [place] [address] LOC: Y.310 A PHONE #: [phone] EXAM DATE: 10/27/2022 STATUS: ADM IN FAX #: [phone] RAD #: D/C DT PAGE 1 Signed Report Patient Name: CHAVO MARTIN Unit No: [id number] EXAMS: CPT CODE: [id number] XR PELVIS 1/2 VIEWS 97331 (Continued) Orig Print D/T: S: 10/28/2022 (0805) [facility] NAME: CHAVO MARTIN [address] [facility] PHYS: GOYRO - DionicioTristen galvan MD : 1945 AGE: 77 SEX: F [place], [place] [address] LOC: Y.310 A PHONE #: [phone] EXAM DATE: 10/27/2022 STATUS: ADM IN FAX #: [phone] RAD #: D/C DT PAGE 2 Signed Report HGB HCT 2022-10-28 06:24:00 Test Item Value Reference Range Interpretation Comme nts HEMOGLOBIN (test code = HGB) 9.2 g/dL 12-16 L HEMATOCRIT (test code = HCT) 29.0 % 37-47 L SPECIMEN COMMENT: POD #1Hemoglobin and Hematocrit panel - [id number] 05:10:00 Test Item Value Reference Range Interpretation Comments hemoglobin (test code = hemoglobin) 9.2 g/dL 12-16 L hematocrit (test code = hematocrit) 29.0 % 37-47 L performing lab: (test code = performing lab:) [facility] Sports MedicineCOMPREHENSIVE METABOLIC [id number] 15:29:00 Test Item Value Reference Range Interpretation Comments SODIUM (test code = 139 mmol/L 136-145 N NA) POTASSIUM (test 4.5 mmol/L 3.5-5.1 N code = K) CHLORIDE (test code 102.0 mmol/L 98-107 N = CL) CARBON DIOXIDE 27.7 mmol/L 21-32 N (test code = CO2) GLUCOSE (test code 94 mg/dL 70-110 N = GLU) BLOOD UREA NITROGEN 18 mg/dL 7-18 N (test code = BUN) GLOMERULAR 74.7 >60 The Glomerular FILTRATION RATE Filtration R ate is a (test code = GFR) calculated parameterbased on serum Creatinin e, patient age and sex. GFR valuesless than 60 mL/min/1.73 squ are meters are conchis cative ofChronic Kidne y Disease. Values less than 15 mL/min/1.73squa re meters indicate Kidney failure. The calculation for GFR is based on the CK D-EPI (2020) calculat ion. This formulais race indifferent and is the recommended for patty for GFRby the N ational Kidney Foundati on for Adults.The GFR will not calculate i f the sex is unknown or if thepatient's ag e is <18 years. CREATININE (test 0.81 mg/dL 0.55-1.30 N code = CREAT) TOTAL PROTEIN (test 7.5 g/dL 6.4-8.2 N code = PROT) ALBUMIN (test code 3.4 g/dL 3.4-5.0 N = ALB) GLOBULIN (test code 4.1 g/dL 2.2-4.2 N = GLOB) ALBUMIN/GLOBULIN 0.8 0.7-2.0 N RATIO (test code = A/G) CALCIUM (test code 8.6 mg/dL 8.2-10.1 N = CA) BILIRUBIN TOTAL 0.30 mg/dL 0.2-1.00 N (test code = BILT) SGOT/AST (test code 16.0 U/L 15-37 N = AST) SGPT/ALT (test code 16.0 U/L 12-78 N Please n ote new normal = ALT) range. ALKALINE 112 U/L 46-116 N PHOSPHATASE TOTAL (test code = ALKP) PROTHROMBIN [id number] 15:27:00 Test Item Value Reference Range Interpretation Comments PROTHROMBIN TIME 12.2 secs 9.7-12.5 N Please note new normal PATIENT (test code = range. PTP) INTERNATIONAL NORMAL 1.10 <2.0 RECOMME NDED THERAPEUTIC RATIO (test code = RANGE FOR ORAL INR) ANTICOAGULANTTR EATMENT: CONDITION INRPr ophylaxis of venous throm bosis in 2.0 - 3.0 high- risk medical or surg ical patientsTreatme nt of venous thrombos is 2.0 - 3.0Prevention o f embolism 2.0 - 3.0Prevention o f recurrent embol ism, or 3.0 - 4.5 patie nts with mechanical pros thetic intravascular v olivo IS PATIENT ON ANTICOAGULANTS ? YLIST ANTICOAGULANT/ANTI PLT MEDICATION : AspirinHas Lab been notified if Patient is on Heparin Drip? NOTHROMBOPLASTIN TIME [id number] 15:27:00 Test Item Value Reference Range Interpretation Comments PTT ACTIVATED (test 31.4 secs 26.6-34.6 N Please n ote new code = APTT) normal range. IS PATIENT ON ANTICOAGULANTS ? YLIST ANTICOAGULANT/ANTI PLT MEDICATION : AspirinHas Lab been notified if Patient is on Heparin Drip? NOCBC W/AUTO DIFF 2022-10-21 15:00:00 Test Item Value Reference Range Interpretation Comments WHITE BLOOD CELL (test code = WBC) 5.6 K/mm3 5.8-11.0 L RED BLOOD CELL (test code = RBC) 4.14 M/mm3 4.2-5.4 L HEMOGLOBIN (test code = HGB) 11.7 g/dL 12-16 L HEMATOCRIT (test code = HCT) 36.9 % 37-47 L MEAN CELL VOLUME (test code = MCV) 89 fL 80-98 N MEAN CELL HGB (test code = MCH) 28.3 pg 27-34 N MEAN CELL HGB CONCENTRATION (test 31.7 g/dL 30.8-34.1 N code = MCHC) RED CELL DISTRIBUTION WIDTH (test 14.3 % 11-16 N code = RDW) PLT (test code = PLT) 240 K/mm3 130-400 N MEAN PLATELET VOLUME (test code = 11.0 fL 8.9-12.1 N MPV) NEUTROPHIL % (test code = NT%) 58.5 % 45-70 N LYMPHOCYTE % (test code = LY%) 30.1 % 20-40 N MONOCYTE % (test code = MO%) 8.7 % 3-10 N EOSINOPHIL % (test code = EO%) 1.6 % 1-5 N BASOPHIL % (test code = BA%) 0.7 % 0.0-1.1 N NEUTROPHIL # (test code = NT#) 3.29 K/mm3 2.00-7.50 N LYMPHOCYTE # (test code = LY#) 1.69 K/mm3 1.50-4.00 N MONOCYTE # (test code = MO#) 0.49 K/mm3 0.2-0.8 N EOSINOPHIL # (test code = EO#) 0.09 K/mm3 0.04-0.4 N BASOPHIL # (test code = BA#) 0.04 K/mm3 0.02-0.10 N MANUAL DIFF REQUIRED (test code = NO MANUAL DIFF MDIFF) NUCLEATED RED BLOOD CELL (test 0 % 0-0 N code = NRBC) Prothrombin time (PT)2022-10-21 13:50:00 Test Item Value Reference Range Interpretation Comments prothrombin time patient (test code 12.2 secs 9.7-12.5 = prothrombin time patient) international normal ratio (test 1.10 <2.0 code = international normal ratio) performing lab: (test code = performing lab:) [facility] [id number] 13:50:00 Test Item Value Reference Range Interpretation Comments PTT activated (test code = PTT 31.4 secs 26.6-34.6 activated) performing lab: (test code = performing lab:) [facility]Com[facility] 2000 panel - Serum or [id number] 13:50:00 Test Item Value Reference Range Interpretation Comments sodium (test code = sodium) 139 mmol/L 136-145 potassium (test code = 4.5 mmol/L 3.5-5.1 potassium) chloride (test code = chloride) 102.0 mmol/L 98-107 carbon dioxide (test code = 27.7 mmol/L 21-32 carbon dioxide) glucose (test code = glucose) 94 mg/dL 70-110 blood urea nitrogen (test code = 18 mg/dL 7-18 blood urea nitrogen) glomerular filtration rate (test 74.7 >60 code = glomerular filtration rate) creatinine (test code = 0.81 mg/dL 0.55-1.30 creatinine) total protein (test code = total 7.5 g/dL 6.4-8.2 protein) albumin (test code = albumin) 3.4 g/dL 3.4-5.0 globulin (test code = globulin) 4.1 g/dL 2.2-4.2 albumin/globulin ratio (test 0.8 0.7-2.0 code = albumin/globulin ratio) calcium (test code = calcium) 8.6 mg/dL 8.2-10.1 bilirubin total (test code = 0.30 mg/dL 0.2-1.00 bilirubin total) SGOT/AST (test code = SGOT/AST) 16.0 U/L 15-37 SGPT/ALT (test code = SGPT/ALT) 16.0 U/L 12-78 alkaline phosphatase total (test 112 U/L 46-116 code = alkaline phosphatase total) performing lab: (test code = performing lab:) [facility] CenterMethicillin resistant Staphylococcus aureus [Presence] in Specimen by Organism specific [id number] 13:50:00 Test Item Value Reference Range Interpretation Comments MRSA surveillance screen (test code see below = MRSA surveillance screen) performing lab: (test code = performing lab:) [facility] PCR surveillance [id number] 13:50:00 Test Item Value Reference Range Interpretation Comments mssa PCR surveillance screen (test see below code = mssa PCR surveillance screen) performing lab: (test code = performing lab:) [facility] CenterCB W Auto Differential panel - [id number] 13:50:00 Test Item Value Reference Range Interpretation Comments white blood cell (test code = 5.6 K/mm3 5.8-11.0 L white blood cell) red blood cell (test code = red 4.14 M/mm3 4.2-5.4 L blood cell) hemoglobin (test code = 11.7 g/dL 12-16 L hemoglobin) hematocrit (test code = 36.9 % 37-47 L hematocrit) mean cell volume (test code = mean 89 fL 80-98 cell volume) mean cell HGB (test code = mean 28.3 pg 27-34 cell HGB) mean cell HGB concentration (test 31.7 g/dL 30.8-34.1 code = mean cell HGB concentration) red cell distribution width (test 14.3 % 11-16 code = red cell distribution width) plt (test code = plt) 240 K/mm3 130-400 mean platelet volume (test code = 11.0 fL 8.9-12.1 mean platelet volume) neutrophil % (test code = 58.5 % 45-70 neutrophil %) lymphocyte % (test code = 30.1 % 20-40 lymphocyte %) monocyte % (test code = monocyte 8.7 % 3-10 %) eosinophil % (test code = 1.6 % 1-5 eosinophil %) basophil % (test code = basophil 0.7 % 0.0-1.1 %) neutrophil # (test code = 3.29 K/mm3 2.00-7.50 neutrophil #) lymphocyte # (test code = 1.69 K/mm3 1.50-4.00 lymphocyte #) monocyte # (test code = monocyte 0.49 K/mm3 0.2-0.8 #) eosinophil # (test code = 0.09 K/mm3 0.04-0.4 eosinophil #) basophil # (test code = basophil 0.04 K/mm3 0.02-0.10 #) manual diff required (test code = no manual diff manual diff required) nucleated red blood cell (test 0 % 0-0 code = nucleated red blood cell) performing lab: (test code = performing lab:) [facility] CenterProthrombin time (PT)2022-10-21 13:50:00 Test Item Value Reference Range Interpretation Comments prothrombin time patient (test code 12.2 secs 9.7-12.5 = prothrombin time patient) international normal ratio (test 1.10 <2.0 code = international normal ratio) performing lab: (test code = performing lab:) [facility] Centerthromboplastin time [id number] 13:50:00 Test Item Value Reference Range Interpretation Comments PTT activated (test code = PTT 31.4 secs 26.6-34.6 activated) performing lab: (test code = performing lab:) [facility] CenterCom[facility] 2000 panel - Serum or [id number] 13:50:00 Test Item Value Reference Range Interpretation Comments sodium (test code = sodium) 139 mmol/L 136-145 potassium (test code = 4.5 mmol/L 3.5-5.1 potassium) chloride (test code = chloride) 102.0 mmol/L 98-107 carbon dioxide (test code = 27.7 mmol/L 21-32 carbon dioxide) glucose (test code = glucose) 94 mg/dL 70-110 blood urea nitrogen (test code = 18 mg/dL 7-18 blood urea nitrogen) glomerular filtration rate (test 74.7 >60 code = glomerular filtration rate) creatinine (test code = 0.81 mg/dL 0.55-1.30 creatinine) total protein (test code = total 7.5 g/dL 6.4-8.2 protein) albumin (test code = albumin) 3.4 g/dL 3.4-5.0 globulin (test code = globulin) 4.1 g/dL 2.2-4.2 albumin/globulin ratio (test 0.8 0.7-2.0 code = albumin/globulin ratio) calcium (test code = calcium) 8.6 mg/dL 8.2-10.1 bilirubin total (test code = 0.30 mg/dL 0.2-1.00 bilirubin total) SGOT/AST (test code = SGOT/AST) 16.0 U/L 15-37 SGPT/ALT (test code = SGPT/ALT) 16.0 U/L 12-78 alkaline phosphatase total (test 112 U/L 46-116 code = alkaline phosphatase total) performing lab: (test code = performing lab:) [facility] CenterMethicillin resistant Staphylococcus aureus [Presence] in Specimen by Organism specific [id number] 13:50:00 Test Item Value Reference Range Interpretation Comments MRSA surveillance screen (test code see below = MRSA surveillance screen) performing lab: (test code = performing lab:) [facility] Centerm[facility] PCR surveillance [id number] 13:50:00 Test Item Value Reference Range Interpretation Comments mssa PCR surveillance screen (test see below code = mssa PCR surveillance screen) performing lab: (test code = performing lab:) [facility] CenterHGB [id number] 06:00:00 Test Item Value Reference Range Interpretation Comments HEMOGLOBIN (test code = HGB) 8.7 g/dL 12-16 L HEMATOCRIT (test code = HCT) 28.1 % 37-47 L - XR SPINE 1 V SPEC [id number] 11:57:00 [facility] 1945 Sex: F Patient Name: CHAVO MARTIN Unit No: [id number] EXAMS: CPT CODE: [id number] XR SPINE 1 V SPEC LEVEL [id number] LATERAL INTRAOPERATIVE VIEWS OF THE LUMBAR SPINE Image 1: Surgical markers are at L3 and L4-L5 levels Image 2: Surgical instrumentation is at L2 Image 3: Pedicle screws are in place from L2 to L4 at 1157 Reported and signed by: Parveen Lemons M.D. CC: Kojo Centeno M.D. Technologist: Joshua Alvarez(R) Transcribed D/ (4779) KimSLJ [facility] NAME: CHAVO MARTIN [address] [facility] PHYS: Kojo Kramer MD : 1945 AGE: 76 SEX: F [place] [address] LOC: Y.316 A PHONE #: [phone] EXAM DATE: 11/24/2021 STATUS: ADM IN FAX #: [phone] RAD #:D/C DT PAGE 1 Signed Report Patient Name: CHAVO MARTIN Unit No: [id number] EXAMS: CPT CODE: [id number] XR SPINE 1 V SPEC LEVEL 85821 <Continued> Orig Print D/T: S: 11/25/2021 (1208) [facility] NAME: CHAVO MARTIN [address] [facility] PHYS: Kojo Kramer MD : 1945 AGE: 76 SEX: F [place], [place] [address] LOC: Y.316 A PHONE #: [phone] EXAMDATE: 11/24/2021 STATUS: ADM IN FAX #: [phone] RAD #: D/C DT PAGE 2 Signed Report- XR SPINE 1 V SPEC [id number] 11:57:00 [facility] 1945 Sex: F Patient Name: CHAVO MARTIN Unit No: [id number] EXAMS: CPT CODE: [id number] XR SPINE 1 V SPEC LEVEL [id number] LATERAL INTRAOPERATIVE VIEWS OF THE LUMBAR SPINE Image 1: Surgical markers are at L3 and L4-L5 levels Image 2: Surgical instrumentation is at L2 Image 3: Pedicle screws are in place from L2 to L4 at 1157 Reported and signed by: Parveen Lemons M.D. CC: Kojo Centeno M.D. Technologist: WILL BERMEO(R) Transcribed D/ (1157) [facility]: CHAVO MARTIN [address] [facility] PHYS:Kojo Kramer MD : 1945 AGE: 76 SEX: F [place], [place] [address] LOC: Y.316 A PHONE #: [phone] EXAM DATE: 11/24/2021 STATUS: ADM IN FAX #: [phone] RAD #: D/C DT PAGE 1 Signed Report Patient Name: CHAVO MARTIN Unit No: [id number] EXAMS: CPT CODE: [id number] XR SPINE 1 V SPEC LEVEL 09430 <Continued> Orig Print D/T: S: 11/25/2021 (1201) [facility] NAME: CHAVO MARTIN [address] [facility] PHYS: Kojo Kramer MD : 1945GE: 76 SEX: F [place] [address] LOC: Y.316 A PHONE #: [phone] EXAM DATE: 11/24/2021 STATUS: ADM IN FAX #: [phone] RAD #: D/C DT PAGE 2 Signed Report- XR SPINE 1 V SPEC [id number] 11:57:00 [facility] : 1945 Sex: F Patient Name: CHAVO MARTIN Unit No: [id number] EXAMS: CPT CODE: [id number] XR SPINE 1 V SPEC LEVEL 57409 3 LATERAL INTRAOPERATIVE VIEWS OF THE LUMBAR SPINE Image 1: Surgical markers are at L3 and L4-L5 levels Image 2: Surgical instrumentation is at L2 Image 3: Pedicle screws are in place from L2 to L4 at 1157 Reported and signed by:Parveen Lemons M.D. CC: Kojo Centeno M.D. Technologist: WILL MCGILL RT(Cassie) Transcribed D/ (1157) [facility]: CHAVO MARTIN [address] [facility] PHYS: Kojo Kramer MD : 1945 AGE: 76 SEX: F [place] [address] LOC: Y.316 A PHONE #: [phone] EXAM DATE: 11/24/2021 STATUS: ADM IN FAX #: [phone] RAD #:D/C DT PAGE 1 Signed Report Patient Name: CHAVO MARTIN Unit No: [id number] EXAMS: CPT CODE: [id number] XR SPINE 1 V SPEC LEVEL 05415 <Continued> Orig Print D/T: S: 11/25/2021 (1201) [facility] NAME: CHAVO MARTIN [address] [facility] PHYS: Kojo Kramer MD : 1945 AGE: 76 SEX: F [place], [place] [address] LOC: Y.316 A PHONE #: [phone] EXAMDATE: 11/24/2021 STATUS: ADM IN FAX #: [phone] RAD #: D/C DT PAGE 2 Signed ReportHGB [id number] 06:00:00 Test Item Value Reference Range Interpretation Comments HEMOGLOBIN (test code = HGB) 9.3 g/dL 12-16 L HEMATOCRIT (test code = HCT) 29.9 % 37-47 L BASIC METABOLIC [id number] 06:45:00 Test Item Value Reference Range Interpretation Comments SODIUM (test code = 137 mmol/L 136-145 N NA) POTASSIUM (test code = 4.6 mmol/L 3.5-5.1 N K) CHLORIDE (test code = 102.0 mmol/L 98-107 N CL) CARBON DIOXIDE (test 26.3 mmol/L 21-32 N code = CO2) GLUCOSE (test code = 125 mg/dL 70-110 H GLU) BLOOD UREA NITROGEN 12 mg/dL 7-18 N (test code = BUN) GLOMERULAR FILTRATION 90.2 >60 Unit o f measure: RATE (test code = GFR) mL/mi n/1.73 [id number] Range:Healthy Adults >90 mL/min/1.73 m2 For Chronic Kidney Disease: Stage II Mild Decrease i n GFR 60-90 Stage III Moderate Decrea se in GFR 30-59 St age IV Severe Decre ase in GFR 15-29 St age V Kidney Failur e <15 CREATININE (test code 0.64 mg/dL 0.55-1.30 N = CREAT) CALCIUM (test code = 8.5 mg/dL 8.2-10.1 N CA) HGB [id number] 06:04:00 Test Item Value Reference Range Interpretation Comments HEMOGLOBIN (test code = HGB) 11.7 g/dL 12-16 L HEMATOCRIT (test code = HCT) 36.9 % 37-47 L Novel Coronavirus 2018 [id number] 12:14:00 Test Item Value Reference Range Interpretation Comments Novel Coronavirus Negative Negative Positive r esults are 2019 Inhouse (test indicativ e of the presence code = COVNONPUI) ofSARS-CoV -2 RNA, clinical correlation wit h patient historyand othe r diagnostic info rmation is necessary to determinepatien t infection status. Positiv e results do not rule out bacterial infection or co -infection with other viru ses. Negative result s do not preclude SARS-C oV-2 infection andsh ould not be used as the cynthia e basis for patient managementdecis ions. Negative result s must be combined with otherclinical observations, p atient history, and epidemiological information . Detection of SARS-CoV-2 RNA may be affe cted bysample collec tion methods, storag e conditions, and /or stageof infection. Kassi l RNA mutations, vacc inations, antiviraltherap eutics, antibiotics, chemotherapeuti c orimmunosuppres ligia drugs have not been e valuated for effectson d etection. Results are for the identification of SARS-CoV-2 RNA usingreal-time (RT) polymerase abelino n reaction (PCR) technolog yfor the qualitative det ection of nucleic acids f rom [id number] v irus and diagnosis of SA RS-CoV-2 virusinfection. It is an Emergency Use Authorization ( EUA) testauthorized by the U.S. FDA. Novel Coronavirus 2018 [id number] 12:13:00 Test Item Value Reference Range Interpretation Comments Novel Coronavirus Negative Negative Positive r esults are 2018 Inhouse (test indicativ e of the presence code = COVNONPUI) ofSARS-CoV -2 RNA, clinical correlation wit h patient historyand othe r diagnostic info rmation is necessary to determinepatien t infection status. Positiv e results do not rule out bacterial infection or co -infection with other viru ses. Negative result s do not preclude SARS-C oV-2 infection andsh ould not be used as the cynthia e basis for patient managementdecis ions. Negative result s must be combined with otherclinical observations, p atient history, and epidemiological information . Detection of SARS-CoV-2 RNA may be affe cted bysample collec tion methods, storag e conditions, and /or stageof infection. Kassi l RNA mutations, vacc inations, antiviraltherap eutics, antibiotics, chemotherapeuti c orimmunosuppres ligia drugs have not been e valuated for effectson d etection. Results are for the identification of SARS-CoV-2 RNA usingreal-time (RT) polymerase abelino n reaction (PCR) technolog yfor the qualitative det ection of nucleic acids f rom [id number] v irus and diagnosis of SA RS-CoV-2 virusinfection. It is an Emergency Use Authorization ( EUA) testauthorized by the U.S. FDA. ACUTE HEPATITIS [id number] 22:01:00 Test Item Value Reference Range Interpretation Comments AB HEPATITIS A IGM (test code = NONREACTIVE NONREACTIVE HAVMAB) AG HEPATITIS B SURFACE (test code NONREACTIVE NONREACTIVE = HBSAG) AB HEPATITIS B CORE IGM (test NONREACTIVE NONREACTIVE code = HBCMAB) AB HEPATITIS C (test code = NONREACTIVE NONREACTIVE HCVAB) SIGNAL TO CUTOFF (test code = < 0.02 <0.80 CUTOFF) AB HIV 22:01:00 Test Item Value Reference Range Interpretation Comments AB HIV 1 (test code NONREACTIVE NONREACTIVE DONE AT: [facility] = HIV1AB) [facility] [address] [facility], [place] [address]Done by [employer] aur 4th Gen HIV Ag/Ab C ombo Screen ACUTE HEPATITIS [id number] 22:00:00 Test Item Value Reference Range Interpretation Comments AB HEPATITIS A IGM (test code = NONREACTIVE NONREACTIVE HAVMAB) AG HEPATITIS B SURFACE (test code NONREACTIVE NONREACTIVE = HBSAG) AB HEPATITIS B CORE IGM (test NONREACTIVE NONREACTIVE code = HBCMAB) AB HEPATITIS C (test code = NONREACTIVE NONREACTIVE HCVAB) SIGNAL TO CUTOFF (test code = <0.02 <0.80 N CUTOFF) AB HIV 1 22:00:00 Test Item Value Reference Range Interpretation Comments AB HIV 1 2 (test NONREACTIVE NONREACTIVE [facility] code = [id number]) 4th Gen HIV Ag/Ab Combo Screen COMPREHENSIVE METABOLIC [id number] 19:12:00 Test Item Value Reference Range Interpretation Comments SODIUM (test code = 142 mmol/L 136-145 N NA) POTASSIUM (test code = 4.5 mmol/L 3.5-5.1 N K) CHLORIDE (test code = 102.0 mmol/L 98-107 N CL) CARBON DIOXIDE (test 30.3 mmol/L 21-32 N code = CO2) GLUCOSE (test code = 92 mg/dL 70-110 N GLU) BLOOD UREA NITROGEN 13 mg/dL 7-18 N (test code = BUN) GLOMERULAR FILTRATION 63.3 >60 Unit o f measure: RATE (test code = GFR) mL/mi n/1.73 [id number] Range:Healthy Adults >90 mL/min/1.73 m2 For Chronic Kidney Disease: Stage II Mild Decrease i n GFR 60-90 Stage III Moderate Decrea se in GFR 30-59 St age IV Severe Decre ase in GFR 15-29 St age V Kidney Failur e <15 CREATININE (test code 0.87 mg/dL 0.55-1.30 N = CREAT) TOTAL PROTEIN (test 8.0 g/dL 6.4-8.2 N code = PROT) ALBUMIN (test code = 3.5 g/dL 3.4-5.0 N ALB) GLOBULIN (test code = 4.5 g/dL 2.2-4.2 H GLOB) ALBUMIN/GLOBULIN RATIO 0.8 0.7-2.0 N (test code = A/G) CALCIUM (test code = 8.8 mg/dL 8.2-10.1 N CA) BILIRUBIN TOTAL (test 0.30 mg/dL 0.2-1.00 N code = BILT) SGOT/AST (test code = 24.0 U/L 15-37 N AST) SGPT/ALT (test code = 29.0 U/L 12-78 N Please note new ALT) normal range. ALKALINE PHOSPHATASE 109 U/L 46-116 N TOTAL (test code = ALKP) PROTHROMBIN [id number] 18:47:00 Test Item Value Reference Range Interpretation Comments PROTHROMBIN TIME 11.9 secs 9.7-12.5 N Please note new normal PATIENT (test code = range. PTP) INTERNATIONAL NORMAL 1.07 <2.0 RECOMME NDED THERAPEUTIC RATIO (test code = RANGE FOR ORAL INR) ANTICOAGULANTTR EATMENT: CONDITION INRPr ophylaxis of venous throm bosis in 2.0 - 3.0 high- risk medical or surg ical patientsTreatme nt of venous thrombos is 2.0 - 3.0Prevention o f embolism 2.0 - 3.0Prevention o f recurrent embol ism, or 3.0 - 4.5 patie nts with mechanical pros thetic intravascular v olivo IS PATIENT ON ANTICOAGULANTS ? YLIST ANTICOAGULANT/ANTI PLT MEDICATION : AspirinHas Lab been notified if Patient is on Heparin Drip? NOIf Yes, order CBC, OCCULT BLOOD, PT every other day NTHROMBOPLASTIN TIME [id number] 18:47:00 Test Item Value Reference Range Interpretation Comments PTT ACTIVATED (test 34.8 secs 26.6-34.6 H Please n ote new code = APTT) normal range. IS PATIENT ON ANTICOAGULANTS ? YLIST ANTICOAGULANT/ANTI PLT MEDICATION : AspirinHas Lab been notified if Patient is on Heparin Drip? NOIf Yes, order CBC, OCCULT BLOOD, PT every other day NCBC W/AUTO [id number] 17:34:00 Test Item Value Reference Range Interpretation Comments WHITE BLOOD CELL (test code = WBC) 6.8 K/mm3 5.8-11.0 N RED BLOOD CELL (test code = RBC) 4.48 M/mm3 4.2-5.4 N HEMOGLOBIN (test code = HGB) 12.4 g/dL 12-16 N HEMATOCRIT (test code = HCT) 39.3 % 37-47 N MEAN CELL VOLUME (test code = MCV) 88 fL 80-98 N MEAN CELL HGB (test code = MCH) 27.7 pg 27-34 N MEAN CELL HGB CONCENTRATION (test 31.6 g/dL 30.8-34.1 N code = MCHC) RED CELL DISTRIBUTION WIDTH (test 17.1 % 11-16 H code = RDW) PLT (test code = PLT) 280 K/mm3 130-400 N MEAN PLATELET VOLUME (test code = 10.5 fL 8.9-12.1 N MPV) NEUTROPHIL % (test code = NT%) 57.2 % 45-70 N LYMPHOCYTE % (test code = LY%) 31.4 % 20-40 N MONOCYTE % (test code = MO%) 8.8 % 3-10 N EOSINOPHIL % (test code = EO%) 1.6 % 1-5 N BASOPHIL % (test code = BA%) 0.4 % 0.0-1.1 N NEUTROPHIL # (test code = NT#) 3.90 K/mm3 2.00-7.50 N LYMPHOCYTE # (test code = LY#) 2.14 K/mm3 1.50-4.00 N MONOCYTE # (test code = MO#) 0.60 K/mm3 0.2-0.8 N EOSINOPHIL # (test code = EO#) 0.11 K/mm3 0.04-0.4 N BASOPHIL # (test code = BA#) 0.03 K/mm3 0.02-0.10 N MANUAL DIFF REQUIRED (test code = NO MANUAL DIFF MDIFF) NUCLEATED RED BLOOD CELL (test 0 % 0-0 N code = NRBC) - XR SPINE 2-3 VWS (SCOLIOSIS)2021-10-20 10:14:00 [facility] 1945 Sex: F Patient Name: CHAVO MARTIN Unit No: [id number] EXAMS: CPT CODE: [id number] XR SPINE 2-3 VWS (SCOLIOSIS) 52881 Scoliosis survey 8 views COMMENT: There is a thoracic scoliosis convex right and a lumbar scoliosis convex left. Thoracic kyphosis is also seen. Endplate degenerative change and interspace narrowing is seen from T7 to T12. at 1014 Reported and signed by: Kojo Carnes MD CC: Kojo Centeno M.D. Technologist: RT Jennifer.(R) Transcribed D/ (1014) tJONOL [facility] NAME: CHAVO MARTIN [address] [facility] PHYS: Kojo Kramer MD : 1945 AGE: 76 SEX: F [place] [address] LOC: Y.MRI PHONE #: [phone] EXAM DATE: 10/19/2021 STATUS: DEP CLI FAX #: [phone] RAD #: D/C DT PAGE 1 Signed Report Patient Name: CHAVO MARTIN Unit No: [id number] EXAMS: CPT CODE: [id number] XR SPINE 2-3 VWS (SCOLIOSIS) 22239 <Continued> Orig Print D/T: S: 10/20/2021 (1018) [facility] NAME: CHAVO MARTIN [address] [facility] PHYS: Kojo Kramer MD : 1945 AGE: 76 SEX: F [place], [place] [address] LOC: Y.MRI PHONE #: [phone] EXAM DATE: 10/19/2021 STATUS: DEP CLI FAX #: [phone] RAD #: D/C DT PAGE 2 Signed Report- XR L-SPINE W/BEND [id number] 10:13:00 [facility] 1945 Sex: F Patient Name: CHAVO MARTIN Unit No: [id number] EXAMS: CPT CODE: [id number] XR L-SPINE W/BEND VIEW 96281 LUMBAR SPINE 5 VIEWS PLUS FLEXION AND EXTENSION COMMENT: COMPARISON: No prior exams available. There is a scoliosis convex left. Vertebral body heights are maintained. Space narrowing and endplate degenerative change is seen from T12 to L5. Grade 1 retrolisthesis is present at L1-2, L2-3 and L3-4. There is no evidence for abnormal motion with flexion and extension. at 1013 Reported and signed by: Kojo Carnes MD CC: Kojo Centeno M.D. Technologist: RT Jennifer.(R) Transcribed D/ (1013) t.ARTEMIORCatalinoMethodist [facility] NAME: CHAVO MARTIN [address] [facility] PHYS: Kojo Kramer MD : 1945 AGE: 76 SEX: F [place] [address] LOC: Y.MRI PHONE #: [phone] EXAM DATE: 10/19/2021 STATUS: DEP CLI FAX #: [phone] RAD #: D/C DT PAGE 1 Signed Report Patient Name: CHAVO AMRTIN Unit No: [id number] EXAMS: CPT CODE: [id number] XR L-SPINE W/BEND VIEW 53281 <Continued> Orig Print D/T: S: 10/20/2021 (1016) [facility] NAME: CHAVO MARTIN [address] [facility] PHYS: Kojo Kramer MD : 1945 AGE: 76 SEX: F [place] [address] LOC: Y.MRI PHONE #: [phone] EXAM DATE: 10/19/2021 STATUS: CANDIE CLI FAX #: [phone] RAD #: D/C DT PAGE 2 Signed Report- MRI L-SPINE W/O [id number] 14:09:00 [facility] 1945 Sex: F Patient Name: CHAVO MARTIN Unit No: [id number] EXAMS: CPT CODE: [id number] MRI L-SPINE W/O CONT 87187 DIAGNOSIS: 1. At L1-2 there is disc degeneration and a grade 1 retrolisthesis with disc bulging. Moderate left foraminal narrowing is seen without right-sided stenosis. There is no evidence for canal stenosis. 2. At L2- 3 there is a grade 1 retrolisthesis and disc degeneration with associated disc bulging. Moderate to marked right and mild left foraminal narrowing is seen. Slight narrowing of the centralcanal is seen. 3. At L3-4 there is disc bulging lateralizing 3 mm into the right neural foramen withmild bilateral foraminal narrowing. Mild central canal stenosis is seen with facet degeneration. 4. At L4-5 there is a degenerative grade 1 spondylolisthesis with disc bulging and mild foraminal narrowing. Moderate canal stenosis is seen with facet and ligamentum flavum hypertrophic and degenerative change. 5. At L5-S1 there is mild disc bulging without foraminal narrowing. Facet degeneration is seenwithout canal stenosis. COMMENT: COMPARISON: No prior exams available. Scans were performed in the sagittal and axial planes utilizing T1, T2 and inversion recovery images. Endplate and disc degeneration is seen from L1 to S1. There is a scoliosis convex left. Disc configurations are as described. Spondylitic changes are as noted. The conus is in the expected location. The description these findings assumes a normal count of 5 lumbar type vertebra. at 1409 Reported and signed by: Kojo Carnes MD CC: Kojo Centeno M.D. Te chnologist: KACEY RAMOS MRI Transcribed D/ (5599) t[facility] [address] [facility] PHYS: Kojo Kramer MD : 1945 AGE: 76 SEX: F [place] [address] LOC: Y.MRI PHONE #: [phone] EXAM DATE: 10/19/2021 STATUS: REG CLI FAX #: [phone] RAD #: D/C DT PAGE 1 Signed Report Patient Name: CHAVO MARTINt No: [id number] EXAMS: CPT CODE: [id number] MRI L-SPINE W/O CONT [id number] <Continued> Orig Print D/T: S: 10/19/2021 (6132) [facility] NAME: CHAVO MARTIN [address] [facility] PHYS: Kojo Kramer MD : 1945 AGE: 76 SEX: F [place] [address] LOC: Y.MRI PHONE #: [phone] EXAM DATE: 10/19/2021 STATUS: REG CLI FAX #: [phone] RAD #: D/CDT PAGE 2 Signed Report Notes Date/Time Note Provider Source 2022-10-28 09:45:00-00:00 [facility] ([facility]) Clinical Note REPORT#:[id number] REPORT STATUS: Signed DATE:10/28/22 TIME: 944 PATIENT: CHAVO MARTIN UNIT #: [id number] [facility] AGE: 77 SEX: F ATTEND: Karan Greenberg MD ADM AUTHOR: Lico Moya MD * ALL edits or amendments must be made on the el code-laborationronic/computer document * Clinical Note Note: [facility] Lico mullen M.D. (cell text [phone]) Assessment/Plan 1.) Anemia of acute blood loss- .Hgb 9.2, asympt omatic. 2.) S/p Left AHA- .acute mul ti-modal pain control and followup. Anticoagulation as per Dr. Greenberg. Patient very pleased with out come. 3.) Hypothyroid- .continue on T4 replacement. 4.) OsteoArthritis GERD- .continue on Rx.. * OK for DISCHARGE per Internal Medicine. Prior Events/Overnight: Uneventful. Chief Complaint: No significant complaints. Objective Vital Signs Date Temp Pulse Resp B/P B/P Mean Pulse Ox FiO2 10/27-10/28 97.0-98.4 70-84 14-18 116-156/58-69 77.9-90.2 93-100 24-32 Gen: Alert, oriented, in mild discomfort Neck: No Masses, No Thyromegaly- CV: Regular Rate Rhythm / Edema- no significant Resp: Clear To Ascultation / Normal Respiratory Effort ABD: NonTender / NonDistended MS/Skin: No sign of compartment syndrome / +ankl e DF/PF Other: Labs/X-ray: Laboratory Tests: 10/28 0510 Hematology Hgb (12 - 16 g/dL) 9.2 L Hct (37 - 47 %) 29.0 L Lico Cabral M.D. at [address] [facility] #:[id number] END OF REPORT 2022-10-28 07:35:00-00:00 [facility] ([facility]) Clinical Note REPORT#:[id number] REPORT STATUS: Signed DATE:10/28/22 TIME: 734 PATIENT: CHAVO MARTIN UNIT #: [id number] ROOM/BED: [address] : [birth year] AGE: 77 SEX: F ATTEND: Brown Greenberg MD ADM AUTHOR: Tristen Greenberg MD * ALL edits or amendments must be made on the [employer] document * Clinical Note Note: POD# 1 Joint Arthroplasty Patient well, reports pain is mild-moderate AF VSS Exam: dressing dry/intact Moves toes DF/PF Sensory unchanged A/P: Mobilize with physical Therapy DVT prophylaxis ongoing Following labs do not recover, patient may shower Discharge planning Laboratory Tests 10/28/22 0510: [Embedded Image Not Available] Vital Signs Date Temp Pulse Resp B/P B/P Mean Pulse Ox FiO2 10/27-10/28 97.0-98.4 70-88 14-18 116-197/58-84 80.7-90.2 93-100 24-32 Intake Output 10/28 0700 10/27 2300 10/27 1500 Intake Total 380.00 Output Total 400 Balance -20.00 Intake, IV 320.00 Intake, Oral 60 Number 0 2 Incontinent Voids Number Voids 2 1 Output, Urine 400 Patient 167 lb Weight Weight Standing scale Measurement Method Electronically Signed by Tristen Greenberg MD on at 0736 RPT #:[id number] END OF REPORT 2022-10-28 07:33:00-00:00 [facility] ([facility]) Discharge Summary REPORT#:[id number] REPORT STATUS: Signed DATE:10/28/22 TIME: 0733 PATIENT: CHAVO MARTIN UNIT #: [id number] ROOM/BED: [address] : 45 AGE: 77 SEX: F ATTEND: Karan Greenberg MD ADM AUTHOR: Tristen Greenberg MD * ALL edits or amendments must be made on the [employer] document * General Information Discharge date: 10/28/22 Discharge diagnosis: same Hospital course: Discharge Diagnosis: Left Hip Degenerative Disea se Procedure: Left Hip Arthroplasty Hospital Course and Findings The patient underwent the pr ocedure without incident. Findings were significant for degenerative disease of the hip. The patient was hemodynamically and medically monitored during the postoperative per iod. Anticoagulation was instituted for postoperative DVT prophylaxis. Th e patient was progressively able to tolerate PO pain med ications and the appropriate diet. Physical therapy was instituted, with a progressive ability to am bulate and perform exercises. The patient was eventually deemed stable and saf e for discharge. Despite factors which projected a longer hospita l stay, the patient fulfilled criteria for earlier than expected disch arge, including control of pain, early mobilization with therapy, and a stable hemodyna kendrick status. At discharge, the patient was comfortabl e, with a controlled pain level. There were no chest or abdominal symptoms present. Dis charge physical examination demonstrated stable vital signs and no acute dis tress. The patient had an intact wound with no signifi cant drainage, and no calf tenderness and a negative Sully s sign bilaterally. There were no neurolog ic or vascular deficits or changes from the preoperative state. Disposition: Discharged to home Discharge Condition: Stable Instructions: Instruction sheet given to patient Activity: Ambulate with assistance and walking a id, with weight-bearing as instructed in the hospital. Weight bearing limit ations were reviewed with the patient during the hospitalization. Diet: As per preoperatively Prescriptions 1. Pain Medications: As per discharge prescription, with progressive weaning as pain decreases 2. Anticoagulation: As per discharge prescription, or PreOp anticoa gulant, as discussed with patient Follow-up Appointment: Patient instructe d to arrange appointment for an office visit in 2 weeks Med Rec Med Rec Discharge meds: Stop taking the following medications: ASPIRIN (ASPIRIN) 81 MG TAB.CHEW 81 MILLIGRAM ORAL DAILY. Continue taking these medications: GABAPENTIN (NEURONTIN) 300 MG CAP 300 MILLIGRAM ORAL TWICE DAILY. Instructions: 2 CAPSULES AM AND PM DULoxetine DR (CYMBALTA) 60 MG CAP.DR 60 MILLIGRAM ORAL TWICE DAILY. [URINARY TRACT PROBIO] 25 MCG/1,000 IU 25 MICROGRAM ORAL DAILY. [MARY 2] (Unknown Strength) TAB 1 TABLET ORAL DAILY. as needed for DRY EYES CALCIUM CARBONATE (CALCICARB) 650 MG CALCIUM (1, 625 MG) TAB 750 MILLIGRAM ORAL DAILY. CHOLECALCIFEROL (VITAMIN D3) (VITAMIN D3) 5,000 UNIT TAB 5,000 UNITS ORAL DAILY. MONTELUKAST (SINGULAIR) 10 MG TAB 10 MILLIGRAM ORAL DAILY. MULTIVITAMIN/MIN/IRON/LUTEIN (CENTRUM SILVER ULT RA WOMEN) 1 EACH TAB 1 EACH ORAL DAILY. ZINC GLUCONATE (ZINC GLUCONATE) 50 MG TAB 50 MILLIGRAM ORAL DAILY. BIOTIN (BIOTIN) 800 MCG TAB 10,000 MICROGRAM DAILY. FAMOTIDINE (PEPCID) 20 MG TAB 20 MILLIGRAM ORAL MONDAY, MONDAY, MONDAY. [MITOCHONDRIAL ENERGY] 1 TABLET ORAL DAILY. LEVOTHYROXINE (SYNTHROID) 25 MCG TAB 25 MICROGRAM ORAL DAILY. Start taking the following new medications: ASPIRIN EC (ECOTRIN) 81 MG TAB.EC 81 MILLIGRAM ORAL TWICE DAILY WITH MEALS. Qty = 60 No Refills DOXYCYCLINE HYCLATE (VIBRAMYCIN) 100 MG CAP 100 MILLIGRAM ORAL TWICE DAILY. Days = 7 Qty = 14 No Refills HYDROcodone/APAP (HYDROcodone/APAP 10/325) 10 MG -325 MG TAB 1 TABLET ORAL EVERY SIX HOURS NEEDED as need ed for prn break through pain Qty = 28 No Refills Instructions: one tab every 6 hours only for breakthrough kyle n POLYETHYLENE GLYCOL 3350 (MIRALAX) 17 GRAM POWDE R 17 GRAM ORAL BEDTIME. Days = 30 Qty = 30 No Refills Instructions: please take daily for constipation prevention MELOXICAM (MOBIC) 15 MG TAB 15 MILLIGRAM ORAL DAILY. Qty = 30 No Refills LACTOBACILLUS ACIDOPHILUS (PROBIOTIC ACIDOPHILUS ) 1 CAP CAP 1 CAPSULE ORAL DAILY. Qty = 30 Refills = 6 Instructions: take as bottle directs for 6 weeks after surger y methocarbamoL (ROBAXIN) 500 MG TAB 500 MILLIGRAM ORAL THREE TIMES DAILY NEEDED. as needed for muscle spasm Qty = 28 No Refills traMADol (ULTRAM) 50 MG TAB 50 MILLIGRAM ORAL EVERY 4 HOURS NEEDED. as n eeded for pain Days = 7 Qty = 28 No Refills Discharge Instructions PCP )( Discharge to: Home/Self Care Discharge Instructions Additional Discharge Routines: Attending Follow- Up )( Diet: Regular )( Activity: As Tolerated, C rutches/Walker, Do not Submerge Incision, No Driving Follow-up Appointments Attending Physician: Attending Physician: Tristen Greenberg MD Electronically Signed by Tristen Greenberg MD on at [address] [place] [address] #:[phone] END OF REPORT 2022-10-27 21:41:00-00:00 [facility] ([facility]) Clinical Note REPORT#:[id number] REPORT STATUS: Signed DATE:10/27/22 TIME: 2140 PATIENT: CHAVO MARTIN UNIT #: [id number] ROOM/BED: [facility]-A : 45 AGE: 77 SEX: F ATTEND: Karan Greenberg MD ADM AUTHOR: Lico Moya MD * ALL edits or amendments must be made on the el code-laborationronic/computer document * Clinical Note Note: [facility] Lico mullen MD (cell text [phone]) Internal Medicine Consult at request of : Dr Dasilva in [facility]. Chief Complaint: left hip pain HPI: 77yo W is now s/p Left Anterior Total Hip A rthroplasty (AHA) by Dr. Greenberg. Ms. Martin relates 3 m onths of progressive left hip pain (recently severe, 06/15), worse with activity, and with restricted motion at times in quality. She has failed conservative management. Comorbidities: see below. PmHx: .Osteoarthritis, hypertension, hyperlipide manny ALLERGY: Allergies: lactose (Coded, Severe, ABDOMINAL PAIN, 10/21/22 ) No Known Drug Allergies (Coded, 10/21/22) Home Medications: Home Medications: GABAPENTIN (NEURONTIN) 300 MG PO BID DULoxetine DR (CYMBALTA) 60 MG PO BID [URINARY TRACT PROBIO] 25 MCG PO DAILY [MARY 2] 1 TAB PO DAILY PRN DRY EYES CALCIUM CARBONATE (CALCICARB) 750 MG PO DAILY CHOLECALCIFEROL (VITAMIN D3) (VITAMIN D3) 5,000 UNITS PO DAILY MONTELUKAST (SINGULAIR) 10 MG PO DAILY MULTIVITAMIN/MIN/IRON/LUTEIN (CENTRUM SILVER ULT RA WOMEN) 1 EACH PO DAILY ZINC GLUCONATE 50 MG PO DAILY BIOTIN 10,000 MCG DAILY FAMOTIDINE (PEPCID) 20 MG PO MOWEFR [MITOCHONDRIAL ENERGY] 1 TAB PO DAILY LEVOTHYROXINE (SYNTHROID) 25 MCG PO DAILY ASPIRIN EC (ECOTRIN) 81 MG PO BID MEALS DOXYCYCLINE HYCLATE (VIBRAMYCIN) 100 MG PO BID HYDROcodone/APAP (HYDROcodon e/APAP 10325) 1 TAB PO Q6HPRN PRN prn break through pain POLYETHYLENE GLYCOL 3350 (MIRALAX) 17 GM PO BEDT NATTY MELOXICAM (MOBIC) 15 MG PO DAILY LACTOBACILLUS ACIDOPHILUS (PROBIOTIC ACIDOPHILUS ) 1 CAP PO DAILY methocarbamoL (ROBAXIN) 500 MG PO TID PRN PRN mu scle spasm traMADol (ULTRAM) 50 MG PO Q4H PRN PRN pain SgHx: . back surgery, hysterectomy, wrist surger y SHx: Tob: none FHx: .No significant hx of DVT/PE . Alcohol: none Drugs: none Lives: with . . . Vitals: Vital Signs: Date Time Temp Pulse Resp B/P B/P Pulse O2 O2 F low FiO2 Mean Ox Delivery Rate 10/27 2101 Nasal 3 cannula 10/27 1954 Nasal 3 cannula 10/27 1954 83 16 116/63 80.7 93 10/27 1710 99 Nasal 3 32 cannula 10/27 1652 97.0 77 14 135/68 90.2 98 Nasal cannula 10/27 1640 97.0 71 15 137/63 100 Nasal 3 cannula 10/27 1626 Nasal 3 cannula 10/27 1625 78 15 156/69 100 Nasal 3 cannula 10/27 1610 70 17 134/65 97 Nasal 3 cannula 10/27 1555 72 17 121/58 99 Nasal 3 cannula 10/27 1540 71 15 131/61 98 Simple 10 mask 10/27 1532 Simple 10 mask 10/27 1523 97.8 71 15 156/63 99 Simple 10 mask 10/27 0850 97.6 88 16 197/84 97 Room air Gen: Sleepy in mild discomfort. EYE: Nl lids conjunctiva. ENT: Nl ears Nose, nl lips,. Neck: Supple, nl thyroid, No masses. CV: Regular Rate Rhythm, no heave or significant murmur. Edema- none RESP: Clear to Auscultation, normal Respiratory effort. ABD: Soft, NonDistended,. LYM: No significant cervical Lymphadenopathy. MS: No sign of compartment syndrome, Anterior hi p incision is dry and intact. NEURO: Nonfocal, grossly normal sensation of LE, +Ankle DF/PF . . Preop Labs(10/23/22): CBC:. Hgb 11.7, Plt 240, CHEM: Na 139, K 4.5, Cr 0.81 (eGFR75%), . Ekg: NSR . (medium to high risk of complications or morbidi ty) (major surgery) (IV sedative, meds) . Assessment Plan 1.) Anemia of Acute Blood Loss- .will recheck to natalie. 2.) S/p Left AHA- .acute mul ti-modal pain control and followup. Anticoagulation as per Dr. Greenberg. 3.) Hypothyroid- .continue on T4 replacement. 4.) OsteoArthritis GERD- .continue on Rx.. Lico Cabral M.D. Thanks! . . . . . G8417 BMI documented as above normal parameters and a f/u plan is documented G9903 - Patient screened for tobacco use AND fatuma ntified as a tobacco non-user 1123F - ACP discussion - default code status whjose juan bowman at [facility]. at 2300 RPT #:[id number] END OF REPORT 2022-10-27 14:36:00-00:00 [facility] ([facility]) Operative Note - Full REPORT#:[id number] REPORT STATUS: Signed DATE:10/27/22 TIME: 1436 PATIENT: CHAVO MARTIN UNIT #: [id number] ROOM/BED: [place] [address] : [birth year] AGE: 77 SEX: F ATTEND: Karan Greenberg MD ADM AUTHOR: Tristen Greenberg MD * ALL edits or amendments must be made on the [facility] document * Operative Report Start date: 10/27/22 Start time: 0000 Pre-procedure diagnosis: L HIP OA Post-procedure diagnosis: SAME Procedures performed: L [facility] Technique/Procedure: Anterior Approach Total Hip Replacement OPERATIVE PROCEDURE IN DETAIL The patient was identified in the [facility] area, and all questions and concerns were answered. The patient verbally conf irmed the site and side of the surgery and marking of the site was done. The patient was brought to [facility] operating room and after adequate anesthesia was obtained was placed supine o n a well-padded [place] table. The leg was then prepped in routine sterile manner, f ollowing which it was draped including the perineum and operative areas with adh esive Ioban Drape. A surgical time-out was performed to identify correct patient, surgical site and surgery. We verified patient had received preoperative antibiotics. An incision was started slightly lateral to the anterior superior iliac spine and extended distally to make it centered over t he greater trochanter. The incision was carried deep to the fascia. The fas nerissa was incised, and the interval between the sartorius and tenso r fascia marie was developed. The leash of vessel across the interva l was cauterized. The hip capsule was identified and retractors were placed laterally and medially ar ound the femoral neck. The capsule was incised in an H fashion with one limb along the neck and the other along the acetabular labrum. The capsule elevate d from the intertrochanteric line distally and proximally . The neck is cut in situ according to pre-operative templating at two sites, using intraoper ative fluoroscopy to confirm the level of resection. The fragment of femoral ne ck is removed, and the head is removed using a corkscrew. Our attention was then directed to the acetabulu m. Anterior and posterior retractors were placed around the acetabulum. Re mnants of labrum were excised anteriorly and posteriorly using a combination o f electrocautery and sharp dissection. The acetabulum was reamed sequential ly with increasing size hemispherical reamers using an offset reamer handle under fluoroscopic guidance until bleeding cancellous bone was uncovered. An acetabular component was impacted with offset inserte rs under fluoroscopic guidance to assure an adequate amount of inclination and anteversion. The poly liner was placed and fully seated with an impactor. Our attention was then directed to the femur. A trochanteric hook was placed lateral, around the greater trochanter. The femu r was then was mobilized by external rotation, hyperextension and adduction of the leg. Dissection of the lateral capsule from the lat eral neck and piriformis fossa allowed elevation of the femur which was held in place with the trochanteric hook. Preparation of the femur was started with a box osteotome, followed by a canal finder and then sequential broaching of the femoral canal using an offset broach handle until an appropriate fit and stability was encountered. A trial head and neck were assembled onto the broach and the hip was reduce d. An intraoperative low AP pelvis x-ray was used to confirm the position an d orientation of acetabular components, the fit and fill of the femoral comp onent, and the leg length at trial reduction. The x-ray was used to make any adjustments needed. The trial components were then removed and the final components inserted. The tissues were then lavaged, and the hip was relocated and stability was checked. Closure was completed with a heavy absorbable suture to the capsule, followed by a running absorbable suture to the fascia. Subcutaneous ab sorbable suture and skin subcuticular stitches were then placed. Dermabon d mesh applied. The patient was woken up from anesthesia and tra nsferred to the recovery in stable condition. INDICATIONS FOR CLINICAL INSTRUCTOR The presence of a skilled quintana rgical diet assistant was medically necessary to aid for the entire procedure. Their responsibilities inc lude patient positioning, retraction of soft tissues for wide exposure so that the surgeon can use both hands to perform the surgery, as well as stabili zing the limb for surgical instrumentation throughout the case. Ret raction for exposure/visualization, as well as stabilization of the extremity is vital to the procedure and not possible without an diet assistant. In addition jairo silver an diet assistant shortens operative times which decrea ses expenses and improves outcomes. I am not part of any residency or fellowship training programs and therefore require the help of the diet assistant listed above for this surgery. IMPLANTS Depuy 54mm [place] cup, 36+4 liner, 2 std trilo ck, 36+ 1.5mm METAL head Primary Surgeon: DIONICIO Teaching Music Lessons(s): JULES PAC Anesthesia: spinal anesthetic Operative findings: OA Complications: none Estimated blood loss in ml's: 500 Specimens removed/altered: none Implant(s): DEPUY Electronically Signed by Tristen Greenberg MD on at 1439 [facility] #:[id number] END OF REPORT 2021-11-28 07:00:00-00:00 [facility] ([facility]) Orthopaedic Progress Note REPORT#:[id number] REPORT STATUS: Signed DATE:11/28/21 TIME: 699 PATIENT: CHAVO MARTIN UNIT #: [id number] ROOM/BED: [address] : 45 AGE: 76 SEX: F ATTEND: Wiliam Centeno MD ADM AUTHOR: Eladio Brito MD * ALL edits or amendments must be made on the [email or web address] document * Subjective Comments: Subjective: Patient is alert, oriented, and resting comfortably. Tolerating PO intake well Objective: Lumbar spine and BLE- dressing is clean, dry, an d intact to lumbar spine. +EHL/FHL/AP/AD, SILT over exposed dermatomes Vital Signs: Date Time Temp Pulse Resp B/P B/P Pulse O2 O2 F low FiO2 Mean Ox Delivery Rate 11/28 0541 36.7 78 15 153/74 100.1 95 Room air 11/27 2301 37.0 86 16 170/76 107.0 96 Room air 11/27 1952 36.5 86 16 143/77 99.3 95 Room air Assessment/ Plan: L2-4 XLIF/PLIF Post op day #4 May discharge home when ready from orthopedic [facility] Follow up in office with Dr. Centeno in 2 weeks. Prescription for pain control called in. at 0703 RPT #:[id number] END OF REPORT 2021-11-27 08:59:00-00:00 [facility] ([facility]) Clinical Note REPORT#:[id number] REPORT STATUS: Signed DATE:11/27/21 TIME: 0859 PATIENT: CHAVO MARTIN UNIT #: [id number] ROOM/BED: [address] : 45 AGE: 76 SEX: F ATTEND: Wiliam Centeno MD ADM AUTHOR: Sekou Avila MD * ALL edits or amendments must be made on the [email or web address] document * Clinical Note Note: Internal Medicine: Sekou Avila MD (office: [phone]) Patient Name: Chavo Martin Date of Service: 11/26/2021 Assessment/Plan 1. Anemia of Acute Blood Loss- hgb 8.7, no sympt oms. 2. 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 3. Physical Therapy, Wound Care, Drain R emoval, post OP steroids, and Starting of DVT Rx per Orthopedics 4. Hypertension- started run alana urena over night, will add standing dose of BP meds plus PRN 5. Neuropathy - continue gabapentin 6. Asthma - continue singulair and PRN nebs Prior Events/Overnight: post op day [address] Chief Complaint: No significant complaints. Objective Vitals: Last Documented: Result Date Time Pulse Ox 100 11/27 717 B/P 154/72 11/27 717 B/P Mean 99.3 11/27 717 O2 Delivery Room air 11/27 717 Temp 37.1 11/27 717 Pulse 93 11/27 07 Resp 14 11/27 07 FiO2 28 11/26 0950 O2 Flow Rate 2 11/26 0950 Vital Signs: Date Time Temp Pulse Resp B/P B/P Pulse O2 O2 F low FiO2 Mean Ox Delivery Rate 11/27 717 37.1 93 14 154/72 99.3 100 Room air 11/27 0630 36.9 97 14 92 11/27 0322 160/80 106 11/27 0122 90 14 164/76 105.3 93 11/26 2311 37.0 89 14 161/74 102.9 90 11/26 2037 36.6 85 14 134/70 91.7 95 11/26 1517 35.6 96 14 114/64 81.0 100 Room air 11/26 1114 36.1 96 14 93/60 71.2 93 Room air 11/26 0950 96 Nasal 2 28 cannula Gen: Alert, oriented, in mild discomfort Neck: No Masses, No Thyromegaly- CV: Regular Rate Rhythm / Edema- no significant Resp: Clear To Ascultation / Normal Respiratory Effort ABD: NonTender / NonDistended MS/Skin: +ankle DF/PF / nl capillary ref ill of toes / neuro vascular and motor intact below surgery site. Other: Labs/X-ray: none Home Meds Home Medications: FERROUS GLUCONATE 324 MG PO DAILY GABAPENTIN (NEURONTIN) 300 MG PO BID DULoxetine DR (CYMBALTA) 60 MG PO BID [URINARY TRACT PROBIO] 25 MCG PO DAILY [MARY 2] 1 TAB PO DAILY PRN DRY EYES CALCIUM CARBONATE (CALCICARB) 750 MG PO DAILY ASPIRIN 81 MG PO DAILY CHOLECALCIFEROL (VITAMIN D3) (VITAMIN D3) 5,000 UNITS PO DAILY MONTELUKAST (SINGULAIR) 10 MG PO DAILY MULTIVITAMIN/MIN/IRON/LUTEIN (CENTRUM SILVER ULT RA WOMEN) 1 EACH PO DAILY ZINC GLUCONATE 50 MG PO DAILY BIOTIN 10,000 MCG DAILY FAMOTIDINE (PEPCID) 20 MG PO MOWEFR methylPREDNISolone 4 MG PO QID PROMETHAZINE (PHENERGAN) 12.5 MG PO DAILY PRN NH N NAUSEA Current Meds Current Medications Sig/Juan Antonio Start time Last Medication Dose Route Stop Time Status Admin Methylprednisolone 4 MG ONCE@11/30 09 AC PO 11/30 1300 Methylprednisolone 4 MG ONCE@11/29 0900 DC PO 11/29 1300 Methylprednisolone 8 MG ONCE@11/29 09 AC PO 11/29 1300 Methylprednisolone 8 MG ONCE@11/28 0900 DC PO 11/28 1300 Methylprednisolone 12 MG ONCE@11/28 0900 A C PO 11/28 1300 Methylprednisolone 12 MG ONCE@11/27 0900 D C PO 11/27 1300 Methylprednisolone 16 MG ONCE@11/27 0900 A C 11/27 PO 11/27 1300 0832 Methylprednisolone 20 MG ONCE@11/26 0900 D C 11/26 PO 11/26 1300 0833 Sodium Biphosphate/ 133 ML ASDIR PRN 11/26 0500 AC Sodium Phosphate RECTAL 12/26 0501 Bisacodyl 10 MG BID 11/25 0900 AC 11/27 PO 12/25 0901 0832 Famotidine 10 MG BID 11/25 0900 AC 11/27 PO 12/25 0901 0830 Loratadine 5 MG DAILY 11/25 0900 AC 11/26 PO 12/25 0901 0832 Magnesium Hydroxide 30 ML QAM 11/25 0900 AC PO 12/25 0901 0830 Multivitamins/Iron/ 1 UDTAB DAILY 11/25 09 AC 11/27 Calcium PO 12/25 0901 0833 Lactated Ringer's 1,000 ML .Q10H 11/24 1830 AC 11/27 IV 12/24 1831 0507 Acetaminophen 650 MG Q4H PRN PRN 11/24 1545 AC PO 12/24 1546 Acetaminophen 650 MG Q4H PRN PRN 11/24 1545 AC PO 12/24 1546 Acetaminophen 650 MG Q4H PRN PRN 11/24 1545 AC RECTAL 12/24 1546 Benzocaine/Menthol 1 LOZENGE Q1H PRN PRN 11/24 1545 AC MM 12/01 1546 Diazepam 5 MG Q6H PRN PRN 11/24 1545 AC PO 12/04 1546 Hydrocodone Bitart/ 1 UDTAB Q3H PRN PRN 11/24 1 545 AC Acetaminophen PO 12/04 1546 Hydrocodone Bitart/ 1 UDTAB Q4H PRN PRN 11/24 1 545 AC 11/27 Acetaminophen PO 12/04 1546 0834 Phenol 1 SPRAY Q1H PRN PRN 11/24 1545 AC MM 12/24 1546 Baclofen 5 MG Q8H PRN PRN 11/24 1130 AC PO 12/24 1131 Diphenhydramine HCl 12.5 MG ANES Q4H PRN PRN 1130 AC 11/25 IV 12/24 1131 0814 Fentanyl/Bupivacaine 250 ML ANES ASDIR 11/24 11 30 AC 11/24 HCl EPIDURAL 12/04 1131 1616 IV Miscellaneous 1 EA ASDIR 11/24 1130 AC Supplies MISC 12/24 1131 Naloxone HCl See Dose ANES ASDIR PRN 11/24 1130 AC Insts (1) IV 12/24 1131 Ondansetron HCl 4 MG ANES Q4H PRN PRN 11/24 113 0 AC IV 12/24 1131 Promethazine HCl 6.25 MG ANES ASDIR PRN 11/24 1 130 AC IM 12/24 1131 Sodium Chloride 10 ML ANES ASDIR PRN 11/24 1130 AC IV 12/24 1131 Tramadol HCl 50 MG Q6H PRN PRN 11/24 1130 AC PO 12/01 1131 Montelukast Sodium 10 MG DAILY 11/24 0900 AC PO 12/24 0901 0832 Gabapentin 600 MG ANES Q12HR 11/23 2200 AC 11/07 2 PO 12/23 2201 0831 Duloxetine HCl 60 MG Q12HR 11/23 2100 r 11/27 PO 12/23 2101 0833 Dose Instructions: (1)Naloxone HCl: 0.1 - 0. 2 MG Sekou Avila MD. at 0910 RPT #:[id number] END OF REPORT 2021-11-27 07:47:00-00:00 [facility] ([facility]) Orthopaedic Progress Note REPORT#:[id number] REPORT STATUS: Signed DATE:11/27/21 TIME: 0747 PATIENT: CHAVO MARTIN UNIT #: [id number] ROOM/BED: [address] : [birth year] AGE: 76 SEX: F ATTEND: Wiliam Centeno MD ADM AUTHOR: Eladio Brito MD * ALL edits or amendments must be made on the [email or web address] document * Subjective Comments: Subjective: Patient is alert, oriented, and resting comfortably. Tolerating PO intake well Objective: Lumbar spine and BLE- dressing is clean, dry, an d intact. +EHL/FHL/AP/AD, SILT over exposed dermatomes Laboratory Tests 11/26/21 0428: [Embedded Image Not Available] Vital Signs: Date Time Temp Pulse Resp B/P B/P Pulse O2 O2 F low FiO2 Mean Ox Delivery Rate 11/27 0718 37.1 93 14 154/72 99.3 100 Room air 11/27 0630 36.9 97 14 92 11/27 0322 160/80 106 11/27 0122 90 14 164/76 105.3 93 11/26 2311 37.0 89 14 161/74 102.9 90 11/26 2037 36.6 85 14 134/70 91.7 95 Assessment/ Plan: L2-4 XLIF/PLF Post op day #3 May discharge home when ready from ortho pedic standpoint, once pain controlled and PT cleared Follow up in office with Dr. Centeno in 2 weeks. Prescription for pain control called in. at 0749 RPT #:[id number] END OF REPORT 2021-11-26 18:56:00-00:00 [facility] ([facility]) Clinical Note REPORT#:[id number] REPORT STATUS: Signed DATE:11/26/21 TIME: 1855 PATIENT: CHAVO MARTIN UNIT #: [id number] [facility] AGE: 76 SEX: F ATTEND: Thomas Centeno MD ADM AUTHOR: Sekou Avila MD * ALL edits or amendments must be made on the el ectronic/computer document * Clinical Note Note: Internal Medicine: Sekou Avila MD (office: [phone]) Patient Name: Chavo Martin Date of Service: 11/26/2021 Assessment/Plan 1. Anemia of Acute Blood Loss- hgb 8.7, no sympt oms. 2. 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 3. Physical Therapy, Wound Care, Drain R emoval, post OP steroids, and Starting of DVT Rx per Orthopedics 4. Hypertension- PRN 5. Neuropathy - continue gabapentin 6. Asthma - continue singulair and PRN nebs Prior Events/Overnight: post op day [address] Chief Complaint: No significant complaints. Objective Vitals: Last Documented: Result Date Time Pulse Ox 100 11/26 151 B/P 114/64 11/26 1517 B/P Mean 81.0 11/26 1517 O2 Delivery Room air 11/26 151 Temp 35.6 11/26 151 Pulse 96 11/26 151 Resp 14 11/26 1517 FiO2 28 11/26 0950 O2 Flow Rate 2 11/26 0950 Gen: Alert, oriented, in mild discomfort Neck: No Masses, No Thyromegaly- CV: Regular Rate Rhythm / Edema- no significant Resp: Clear To Ascultation / Normal Respiratory Effort ABD: NonTender / NonDistended MS/Skin: +ankle DF/PF / nl capillary ref ill of toes / neuro vascular and motor intact below surgery site. Other: Labs/X-ray: Laboratory Tests: 11/26 427 Hematology Hgb (12 - 16 g/dL) 8.7 L Hct (37 - 47 %) 28.1 L none Sekou Avila MD. at 1857 RPT #:[id number] END OF REPORT 2021-11-26 11:39:00-00:00 [facility] ([facility]) Pain Management Progress Note REPORT#:[id number] REPORT STATUS: Signed DATE:11/26/21 TIME: 1139 PATIENT: CHAVO MARTIN UNIT #: [id number] ROOM/BED: [address] : [birth year] AGE: 76 SEX: F ATTEND: Wiliam Centeno MD ADM AUTHOR: Shira Puckett APRN * ALL edits or amendments must be made on the [employer] document * Subjective Chief Complaint: BACK PAIN S/P L2-4 XLIF, PLF Comments: Physical Exam: VAS: 0 LOS: 1 Resp Quality: 1 Time epidural pulled: 1109 Site Exam: CLEAN AND DRY. TIP INTACT Side Effects: NONE PT APPEARS COMFORTABLE AT THIS TIME. Plan: EPIDURAL DC'D D/C ALMANZA CATH 2 HRS AFTER EPIDURAL PULLED PT REFERRED BACK TO SURGEON S SERVICE. at 1142 RPT #:[id number] END OF REPORT 2021-11-26 07:49:00-00:00 [facility] ([facility]) Ortho / Spine Progress Note REPORT#:[id number] REPORT STATUS: Signed DATE:11/26/21 TIME: 0749 PATIENT: CHAVO MARTIN UNIT #: [id number] ROOM/BED: [address] : 45 AGE: 76 SEX: F ATTEND: Wiliam Centeno MD ADM AUTHOR: Kojo Centeno MD * ALL edits or amendments must be made on the [email or web address] document * Subjective Patient Reports: ambulating, comfortable, pain c ontrolled Nursing Reports: HEMOVAC OUTPUT 10 CC`S Objective General VS/I O: Vital Signs: Date Time Temp Pulse Resp B/P B/P Pulse O2 O2 F low FiO2 Mean Ox Delivery Rate 11/26 0628 97.7 79 14 124/73 90.0 98 Nasal cannula 11/26 0723 Nasal 3 cannula 11/26 0408 96.1 77 18 134/64 87.3 96 Nasal cannula 11/26 0309 95 Nasal 2 28 cannula 11/25 2212 97.0 74 18 123/61 81.6 95 Nasal cannula 11/25 2050 96 Nasal 2 28 cannula 11/25 1904 98.2 80 18 120/68 85.5 96 Nasal cannula 11/25 1900 Nasal 2 cannula 11/25 1620 95 Nasal 2 28 cannula 11/25 1512 97.9 85 12 121/59 79.5 11/25 1150 95 Nasal 2 28 cannula 11/25 1108 99.0 90 12 139/69 92.4 11/25 0920 97 Room air 21 24 hour I O ending at 0700: 11/26 0700 11/25 1900 Intake Total 1340.00 Output Total 520 360 Balance 820.00 -360 Intake, IV 600.00 Intake, Oral 740 Number Voids 1 Output, 20 10 Drainage Output, Urine 500 350 PATIENT WEIGHT: Weight (lb): 181 Weight (oz): 10.57 Weight (kg): 82.1 Post Op: day 2 Status post: Status Post: STAGED XLIF/ PLF L2-3 AND L3-4 Physical Exam General appearance: alert, awake, oriented LE Neuro/Lumbar: Bilateral: No obv. LE defici t:, hip flexor:, hip abductor:, hip adductor:, knee extension:, knee flexion:, a nkle inversion:, ankle eversion:, ankle dorsiflexion :, ankle plantiflexion:, EHL:, sensation L1:, se nsation L2:, sensation L3:, sensation L4:, sensation L5:, sensation S1:. Diagnosis, Assessment Plan Hospital course to date: REMOVE EPIDURAL REMOVE ALMANZA URINARY CATHTER REMOVE HEMOVAC DRAIN AMBULATE Electronically Signed by Kojo Centeno MD on 0 11/26/21 at 0751 RPT #:[id number] END OF REPORT 2021-11-26 07:33:00-00:00 [facility] ([facility]) Pain Management Progress Note REPORT#:[id number] REPORT STATUS: Signed DATE:11/26/21 TIME: 732 PATIENT: CHAVO MARTIN UNIT #: [id number] [facility] AGE: 76 SEX: F ATTEND: Wiliam Centeno MD ADM AUTHOR: Ashlee Church NP * ALL edits or amendments must be made on the el [employer]/computer document * Subjective Chief complaint: BACK PAIN S/P XLIF L2-4/ PLF Comments: Vital Signs: Date Time Temp Pulse Resp B/P B/P Pulse O2 O2 Flow FiO2 Mean Ox Delivery Rate 11/26 727 36.5 79 14 124/73 90.0 98 Nasal cannula 11/26 07 Nasal 3 cannula 11/26 0408 35.6 77 18 134/64 87.3 96 Nasal cannula 11/26 0309 95 Nasal 2 28 cannula 11/25 2211 36.1 74 18 123/61 81.6 95 Nasal cannula 11/25 2049 96 Nasal 2 28 cannula Hematology: 11/26 427 Hematology Hgb (12 - 16 g/dL) 8.7 L Hct (37 - 47 %) 28.1 L History: PMH: MOOD DISORDER-FLAT AFFECT, COGNITIVE IMPAI RMENT POD:[address] epidural: JASON Medication: FENT 5/BUP 0.0625% Pump settings: BASAL RATE: 3ML DEMAND DOSE: 0ML DELAY: 6 MIN EPIDURAL USE: LITTLE Activity status: AMBULATING, PASSING FLATUS, LY ING IN BED. Pain: PAIN WELL CONTROLLED. Physical Exam: VAS: 3 LOS: 1 Resp Quality: 1 Time epidural pulled:N/A Side Effects: NONE MOTOR MVMT AND STRENGTH INTACT TO BILAT LOWER E XT. SENSATION INTACT, ABLE TO WIGGLE TOES Plan: PLAN TO WEAN AND DISCONTINUE EPIDURAL TODAY D/C ALMANZA CATH 2 HRS AFTER EPIDURAL PULLED PT REFERRED BACK TO SURGEON S SERVICE. at 0735 RPT #:[id number] END OF REPORT 2021-11-25 17:44:00-00:00 [facility] ([facility]) Clinical Note REPORT#:[id number] REPORT STATUS: Signed DATE:11/25/21 TIME: 4 PATIENT: CHAVO MARTIN UNIT #: [id number] ROOM/BED: [address] : 45 AGE: 76 SEX: F ATTEND: Wiliam Centeno MD ADM AUTHOR: Sekou Avila MD * ALL edits or amendments must be made on the el [employer]/computer document * Clinical Note Note: Internal Medicine: Sekou Avila MD (office: [phone]) Patient Name: Chavo Martin Date of Service: 11/25/2021 Assessment/Plan 1. Anemia of Acute Blood Loss- hgb doing well at 9.3 2. 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 3. Physical Therapy, Wound Care, Drain R emoval, post OP steroids, and Starting of DVT Rx per Orthopedics 4. Hypertension- PRN 5. Neuropathy - continue gabapentin 6. Asthma - continue singulair and PRN nebs Prior Events/Overnight: post op day [address] surgery Chief Complaint: No significant complaints. Objective Vitals: Last Documented: Result Date Time Pulse Ox 95 11/25 1620 FiO2 28 11/25 1620 O2 Delivery Nasal cannula 11/25 1620 O2 Flow Rate 2 11/25 1620 B/P 121/59 11/25 1512 B/P Mean 79.5 11/25 1512 Temp 36.6 11/25 1512 Pulse 85 11/25 1512 Resp 12 11/25 1512 Gen: Alert, oriented, in mild discomfort Neck: No Masses, No Thyromegaly- CV: Regular Rate Rhythm / Edema- no significant Resp: Clear To Ascultation / Normal Respiratory Effort ABD: NonTender / NonDistended MS/Skin: +ankle DF/PF / nl capillary ref ill of toes / neuro vascular and motor intact below surgery site. Other: Labs/X-ray: Laboratory Tests: 11/25 0500 Hematology Hgb (12 - 16 g/dL) 9.3 L Hct (37 - 47 %) 29.9 L none Sekou Avila MD. at 1748 RPT #:[id number] END OF REPORT 2021-11-25 07:29:00-00:00 [facility] ([facility]) Ortho / Spine Progress Note REPORT#:[id number] REPORT STATUS: Signed DATE:11/25/21 TIME: 728 PATIENT: CHAVO MARTIN UNIT #: [id number] ROOM/BED: [address] : 45 AGE: 76 SEX: F ATTEND: Wiliam Centeno MD ADM AUTHOR: Kojo Centeno MD * ALL edits or amendments must be made on the [employer] document * Subjective Patient Reports: feeling better, pain controlled Comments: PATIENT STATES .I AMBULATED WITHOUT LEG PAIN Objective General VS/I O: Vital Signs: Date Time Temp Pulse Resp B/P B/P Pulse O2 O2 F low FiO2 Mean Ox Delivery Rate 11/25 0725 Nasal 3 cannula 11/25 0658 97.5 80 18 128/70 89.5 100 11/25 0406 96.8 79 16 119/57 77.9 97 Nasal 3 cannula 11/25 0304 96 Nasal 3 32 cannula 11/24 2151 97.5 83 16 122/67 85.0 96 Nasal 3 cannula 11/24 2025 97 Nasal 3 32 cannula 11/24 1943 97.0 86 16 115/65 81.8 98 Nasal 3 cannula 11/24 1941 Nasal 3 cannula 11/24 1711 98.6 87 14 138/74 95.1 98 Nasal cannula 11/24 1700 98 Nasal 3 32 cannula 11/24 1659 Nasal 3 cannula 11/24 1621 85 15 152/65 92 Nasal 3 cannula 11/24 1606 82 16 168/74 99 Simple 8 mask 11/24 1548 88 17 171/73 100 Simple 8 mask 11/24 1543 Simple 8 mask 11/24 1532 97.6 92 13 162/69 98 Simple 8 mask 11/24 1046 95 Nasal 1 24 cannula 11/24 0840 95 Nasal 1 24 cannula 11/24 0735 98 Nasal 3 32 cannula 24 hour I O ending at 0700: 11/25 0700 11/24 1900 Intake Total 760.00 100.00 Output Total 625 150 Balance 135.00 -50.00 Intake, IV 520.00 100.00 Intake, Oral 240 Output, 75 0 Drainage Output, Urine 550 150 Patient 181 lb Weight PATIENT WEIGHT: Weight (lb): 181 Weight (oz): 10.57 Weight (kg): 82.1 Post Op: day 1 Status post: Status Post: STAGED XLIF/PLF L2-3 AND L3-4 Physical Exam General appearance: alert, awake, oriented LE Neuro/Lumbar: Bilateral: No obv. LE deficit:. Diagnosis, Assessment Plan Hospital course to date: GAIT TRAINING WITH PHYSICAL THERAPY Electronically Signed by Kojo Centeno MD on 0 11/25/21 at 0730 RPT #:[id number] END OF REPORT 2021-11-25 07:19:00-00:00 [facility] ([facility]) Pain Management Progress Note REPORT#:[id number] REPORT STATUS: Signed DATE:11/25/21 TIME: 718 PATIENT: CHAVO MARTIN UNIT #: [id number] [facility] AGE: 76 SEX: F ATTEND: Wiliam Centeno MD ADM AUTHOR: Ashlee Church RECEIVABLE EXECUTIVE * ALL edits or amendments must be made on the [email or web address]/computer document * Subjective Chief complaint: BACK PAIN S/P XLIF L2-4/ PLF Comments: Vital Signs: Date Time Temp Pulse Resp B/P B/P Pulse O2 O2 F low FiO2 Mean Ox Delivery Rate 11/25 0658 36.4 80 18 128/70 89.5 100 11/25 0406 36.0 79 16 119/57 77.9 97 Nasal 3 cannula 11/25 303 96 Nasal 3 32 cannula 11/24 2150 36.4 83 16 122/67 85.0 96 Nasal 3 cannula 11/24 2024 97 Nasal 3 32 cannula 11/24 1942 36.1 86 16 115/65 81.8 98 Nasal 3 cannula 11/24 1940 Nasal 3 cannula Hematology: 11/25 0500 Hematology Hgb (12 - 16 g/dL) 9.3 L Hct (37 - 47 %) 29.9 L History: PMH: MINOR MEMORY LOSS, MOOD DISORDER-FLAT AFFE CT POD:[address] epidural: JASON Medication: FENT 5/BUP 0.0625% Pump settings: BASAL RATE: 5ML DEMAND DOSE: 1ML DELAY: 15 MIN EPIDURAL USE: LITTLE Activity status: AMBULATING WITH PT, PASSING FL ATUS, LYING IN BED. Pain: PAIN WELL CONTROLLED. Physical Exam: VAS: 2 LOS: 1 Resp Quality: 1 Side Effects: NONE MOTOR MVMT AND STRENGTH INTACT TO BILAT LOWER E XT. SENSATION INTACT Plan: CONTINUE EPIDURAL at 0723 RPT #:[id number] END OF REPORT 2021-11-24 22:45:00-00:00 [facility] ([facility]) Clinical Note REPORT#:[id number] REPORT STATUS: Signed DATE:11/24/21 TIME: 2244 PATIENT: CHAVO MARTIN UNIT #: [id number] ROOM/BED: [address] : 45 AGE: 76 SEX: F ATTEND: Wiliam Centeno MD ADM AUTHOR: Sekou Avila MD * ALL edits or amendments must be made on the [email or web address]/computer document * Clinical Note Note: Internal Medicine Consult Sekou Avila MD (office: [phone]) Patient Name: Chavo Martin Date of Service: 11/24/2021 Internal Medicine Consult at request of : Dr. Calixto Centeno Chief Complaint: back pain HPI: 76 yo F is now s/p Prone lateral Interbody Fusion L2 to L4 by Dr. Centeno. Ms. Martin relates years of progressive back pain (recently severe), worse with activity, and with restricted motion at times in quality. She has failed conservative management. Comorbidities: see below. PmHx: Anemia, history of TB at age 26 s/p treatm ent The patient denies any: card iac, pulmonary, renal, GI, neurological, endocrine, or hematologic issues except as listed above. Allergies and Home Medications: Allergies Allergy Severity Reaction Updated Coded No Known Drug Allergies Unknown 11/23/21 Home Medications: FERROUS GLUCONATE 324 MG PO DAILY GABAPENTIN (NEURONTIN) 300 MG PO BID DULoxetine DR (CYMBALTA) 60 MG PO BID [URINARY TRACT PROBIO] 25 MCG PO DAILY [MARY 2] 1 TAB PO DAILY PRN DRY EYES CALCIUM CARBONATE (CALCICARB) 750 MG PO DAILY ASPIRIN 81 MG PO DAILY CHOLECALCIFEROL (VITAMIN D3) (VITAMIN D3) 5,000 UNITS PO DAILY MONTELUKAST (SINGULAIR) 10 MG PO DAILY MULTIVITAMIN/MIN/IRON/LUTEIN (CENTRUM SILVER ULT RA WOMEN) 1 EACH PO DAILY ZINC GLUCONATE 50 MG PO DAILY BIOTIN 10,000 MCG DAILY FAMOTIDINE (PEPCID) 20 MG PO MOWEFR methylPREDNISolone 4 MG PO QID PROMETHAZINE (PHENERGAN) 12.5 MG PO DAILY PRN NH N NAUSEA SgHx: Hysterectomy, cataracts SHx: Tob: none Alcohol: 1/week Drugs: none Lives: alone FHx: .No significant hx of DVT/PE. ROS: [X] all systems reviewed and negative excep t- [ ] Con: . Fever/ Wt loss [ ] CV: cpain/edema. [ ] Pul: . cough/SOB [ ] GI: hematemesis/diarrhe a [ ] : . dysuria or hematuria [X] MS: back pain [ ] Neuro: . headache/loss sensation [ ] Heme: . adenopathy/Ecchymosis Vitals: Last Documented: Result Date Time Pulse Ox 96 11/24 2150 B/P 122/67 11/24 2150 B/P Mean 85.0 11/24 2150 O2 Delivery Nasal cannula 11/24 2150 O2 Flow Rate 3 11/24 2150 Temp 36.4 11/24 2150 Pulse 83 11/24 2150 Resp 16 11/24 2150 FiO2 32 11/24 2024 Gen: Alert, in mild discomfort, nl nutrition. EYE: Nl lids conjunctiva. ENT: Nl ears Nose, nl lips,. Neck: Supple, nl thyroid, No masses. CV: Regular Rate Rhythm, no heave or significant murmur. Edema- none Feet toes normal temperature. RESP: Clear to Auscultation, normal Respiratory effort. ABD: Soft, NonDistended,. LYM: No significant cervical Lymphadenopathy. MS: No sign of compartment syndrome, incisional dressing dry and intact NEURO: Nonfocal, grossly normal sensation of LE, +Ankle DF/PF PSY: Normal insight, Normal mood, oriented, . Preop Labs (11/16/2021): CBC:. Hgb 12.4, Plt 280, CHEM: Na 142, K 4.5, Cr 0.87 (eGFR 63.3%) EKG: SR with short NH (medium to high risk of complications or morbidi ty) (major surgery) (IV sedative, meds) Laboratory Tests: 11/24 0345 Chemistry Sodium (136 - 145 mmol/L) 137 Potassium (3.5 - 5.1 mmol/L) 4.6 Chloride (98 - 107 mmol/L) 102.0 Carbon Dioxide (21 - 32 mmol/L) 26.3 BUN (7 - 18 mg/dL) 12 Creatinine (0.55 - 1.30 mg/dL) 0.64 Glomerular Filtr Rate (>60) 90.2 Glucose (70 - 110 mg/dL) 125 H Calcium (8.2 - 10.1 mg/dL) 8.5 Hematology Hgb (12 - 16 g/dL) 11.7 L Hct (37 - 47 %) 36.9 L Assessment Plan 1. Anemia of Acute Blood Loss- will recheck doug rrow. 2. 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 3. Physical Therapy, Wound Care, Drain R emoval, post OP steroids, and Starting of DVT Rx per Orthopedics 4. Hypertension- PRN 5. Neuropathy - continue gabapentin 6. Asthma - continue singulair and PRN nebs Thank You for the consult Sekou Avila M.D. at 1744 RPT #:[id number] END OF REPORT 2021-11-24 16:23:00-00:00 [facility] ([facility]) Ortho / Spine Progress Note REPORT#:[id number] REPORT STATUS: Signed DATE:11/24/21 TIME: 1622 PATIENT: CHAVO MARTIN UNIT #: [id number] ROOM/BED: [place] [address] : 45 AGE: 76 SEX: F ATTEND: Wiliam Centeno MD ADM AUTHOR: Kojo Centeno MD * ALL edits or amendments must be made on the el [employer]/computer document * Subjective Patient Reports: pain controlled Objective General VS/I O: Vital Signs: Date Time Temp Pulse Resp B/P B/P Pulse O2 O2 F low FiO2 Mean Ox Delivery Rate 11/24 1621 85 15 152/65 92 Nasal 3 cannula 11/24 1606 82 16 168/74 99 Simple 8 mask 11/24 1548 88 17 171/73 100 Simple 8 mask 11/24 1543 Simple 8 mask 11/24 1532 97.6 92 13 162/69 98 Simple 8 mask 11/24 1046 95 Nasal 1 24 cannula 11/24 0840 95 Nasal 1 24 cannula 11/24 0735 98 Nasal 3 32 cannula 11/24 0725 Nasal 3 cannula 11/24 0706 98.6 82 14 128/70 89.3 92 Nasal cannula 11/24 0409 97.0 83 18 144/65 93 96 Nasal cannula 11/24 0258 98 Nasal 3 32 cannula 11/23 2239 97.7 82 18 158/73 105 97 Nasal cannula 11/23 2145 Nasal 3 cannula 11/23 2030 96 Nasal 3 32 cannula 11/23 1934 96.4 81 18 140/65 94 97 Nasal cannula 11/23 1856 Nasal 3 cannula 11/23 1843 97.7 77 14 124/56 79.0 98 11/23 1835 97 Nasal 3 32 cannula 11/23 1833 Nasal 3 cannula 11/23 1827 74 14 137/64 99 Nasal 3 cannula 11/23 1815 97.2 71 16 141/62 98 Nasal 3 cannula 11/23 1805 74 16 149/61 97 Nasal 3 cannula 11/23 1800 73 16 165/74 98 Nasal 3 cannula 11/23 1745 71 16 167/76 97 Nasal 3 cannula 11/23 1730 78 16 150/68 98 Nasal 3 cannula 11/23 1715 81 16 150/69 100 Simple 8 mask 11/23 1700 85 16 151/69 100 Simple 8 mask 11/23 1654 Simple 8 mask 11/23 1645 87 16 145/66 99 Simple 8 mask 11/23 1643 97.3 84 16 127/61 99 Simple 8 mask 24 hour I O ending at 0700: 11/24 0700 11/23 1900 Intake Total 776.00 200.00 Output Total 1300 150 Balance -524.00 50.00 Intake, IV 536.00 200.00 Intake, Oral 240 Output, Urine 1300 150 Patient 182 lb Weight Weight Standing scale Measurement Method PATIENT WEIGHT: Weight (lb): 181 Weight (oz): 10.57 Weight (kg): 82.1 Post Op: post surgery rounds Status post: Status Post: STAGED XLIF/ PLF L2-3 AND L3-4 Physical Exam General appearance: lethargic, sedated LE Neuro/Lumbar: Bilateral: No obv. LE deficit:. Diagnosis, Assessment Plan Hospital course to date: AMBULATE GAIT TRAINING WITH PHYSICAL THERAPY at 1624 RPT #:[id number] END OF REPORT 2021-11-24 15:45:00-00:00 [facility] ([facility]) Brief Op Note REPORT#:[id number] REPORT STATUS: Signed DATE:11/24/21 TIME: 1544 PATIENT: CHAVO MATRIN UNIT #: [id number] ROOM/BED: [place] [address] : 45 AGE: 76 SEX: F ATTEND: Thomas Centeno MD ADM AUTHOR: Kojo Centeno MD * ALL edits or amendments must be made on the el code-[employer]/computer document * Op/Inv Proc Note - Brief Pre-procedure diagnosis: S/P XLIF L2--L4;STENOSIS L2--L4 Post-procedure diagnosis: same as pre procedure dx Procedures performed: POSTERIOR LATERAL FUSION WIT H INSTRUMENTATION L2-3 AND L3-4 WITH BILATERAL L2-- L4 HEMILAMINOTOMIES Primary Surgeon: JASON Teaching Music Lessons(s): ANDRÉS Findings: STENOSIS L2-3 AND L3-4 Complications: none Estimated blood loss in ml's: 180 CC`S Specimens removed/altered: none at 1548 RPT #:[id number] END OF REPORT 2021-11-24 09:28:00-00:00 [facility] ([facility]) Clinical Note REPORT#:[id number] REPORT STATUS: Signed DATE:11/24/21 TIME: 927 PATIENT: CHAVO MARTIN UNIT #: [id number] ROOM/BED: [place] [address] : 45 AGE: 76 SEX: F ATTEND: Wiliam Centeno MD ADM AUTHOR: Michael Shelley MD * ALL edits or amendments must be made on the [email or web address] document * Clinical Note Note: Ask to manage postoperative pain by [JASON- STAGED A/P FUSION] Epidural [] IV SOCIAL SERVICE MANAGER [X] Continuous Regional Infus ion [] Single Nerve Block [ ] Medication [DILAUDID] Pump Settings: Basal Rate [] Dose [0.1 MG] Delay [ 8 MIN] 1 Hour Limit [] SOCIAL SERVICE MANAGER Use [LITTLE] Assessment VAS [2] L.O.S. [1] Respirator Quality 1[] Side Effects: [] None [X] Nausea [] Urinary Rete ntion [] Numbness [] Weakness [] Drowsiness [] Other HX PONV, BIPOLAR- PT HAS VERY FLAT AF FECT [] Activity Site Assessment: [] Site non -tender and free of redness, swelling or exudates. [ ] Other Catheter Discontinued []Tip intact [] Plan: D/C SOCIAL SERVICE MANAGER NOW BEFORE SURGERY RETURN THIS AFTERNOON. TYLENOL FOR PAIN .AND PT MAY SUMA E WITH SIPS OF WATER. PHENERGAN/PEPCID NOW BEFORE SURGERY FOR PLF. Portions of this section wer e scribed by Alee Roberto on 11/24/21 at 0928 Electronically Signed by Michael Shelley MD on 0 11/24/21 at 1320 RPT #:[id number] END OF REPORT 2021-11-23 21:26:00-00:00 [facility] ([facility]) Ortho / Spine Progress Note REPORT#:[id number] REPORT STATUS: Signed DATE:11/23/21 TIME: 2125 PATIENT: CHAVO MARTIN UNIT #: [id number] ROOM/BED: [address] : 45 AGE: 76 SEX: F ATTEND: Wiliam Centeno MD ADM AUTHOR: Kojo Centeno MD * ALL edits or amendments must be made on the [employer] [employer] document * Subjective Patient Reports: pain controlled Objective General VS/I O: Vital Signs: Date Time Temp Pulse Resp B/P B/P Pulse O2 O2 F low FiO2 Mean Ox Delivery Rate 11/23 2030 96 Nasal 3 32 cannula 11/23 1934 96.4 81 18 140/65 94 97 Nasal cannula 11/23 1856 Nasal 3 cannula 11/23 1843 97.7 77 14 124/56 79.0 98 11/23 1835 97 Nasal 3 32 cannula 11/23 1833 Nasal 3 cannula 11/23 1827 74 14 137/64 99 Nasal 3 cannula 11/23 1815 97.2 71 16 141/62 98 Nasal 3 cannula 11/23 1805 74 16 149/61 97 Nasal 3 cannula 11/23 1800 73 16 165/74 98 Nasal 3 cannula 11/23 1745 71 16 167/76 97 Nasal 3 cannula 11/23 1730 78 16 150/68 98 Nasal 3 cannula 11/23 1715 81 16 150/69 100 Simple 8 mask 11/23 1700 85 16 151/69 100 Simple 8 mask 11/23 1654 Simple 8 mask 11/23 1645 87 16 145/66 99 Simple 8 mask 11/23 1643 97.3 84 16 127/61 99 Simple 8 mask 11/23 0807 97.8 85 16 183/81 98 Room air PATIENT WEIGHT: Weight (lb): 181 Weight (oz): 10.57 Weight (kg): 82.400 Post Op: post surgery rounds Status post: Status Post: XLIF L2-3 AND L3-4 Physical Exam General appearance: alert, awake, oriented LE Neuro/Lumbar: Bilateral: No obv. LE deficit:. Diagnosis, Assessment Plan Hospital course to date: NPO AFTER MIDNIGHT SIGNED CONSENT FOR POSTERIOR LATERAL FUSION WITH INSTRUMENTATION L2--L4 WITH BILATERAL L2-3 AND BILATERAL L3-4 HEMILAMINOTOMI ES AMBULATE Electronically Signed by Kojo Centeno MD on 0 11/23/21 at 2127 RPT #:[id number] END OF REPORT 2021-11-23 20:57:00-00:00 [facility] ([facility]) Brief Op Note REPORT#:[id number] REPORT STATUS: Signed DATE:11/23/21 TIME: 2056 PATIENT: CHAVO MARTIN UNIT #: [id number] ROOM/BED: [address] : 45 AGE: 76 SEX: F ATTEND: Wiliam Centeno MD ADM AUTHOR: Kojo Centeno MD * ALL edits or amendments must be made on the el code-laborationronic/computer document * Op/Inv Proc Note - Brief Pre-procedure diagnosis: DISC DEGENERATION AND STENOSIS L2-3 AND L3-4 Post-procedure diagnosis: same as pre procedure dx Procedures performed: XLIF L2--L4 Primary Surgeon: JASON Teaching Music Lessons(s): ANDRÉS Findings: STENOSIS L2--L4 Complications: none Estimated blood loss in ml's: 50 CC`S Specimens removed/altered: none Electronically Signed by Kojo Centeno MD on 0 11/23/21 at 2058 RPT #:[id number] END OF REPORT 2021-11-16 17:15:00-00:00 [id number] [place] [id number] PATIENT NAME: CHAVO MARTIN ADMIT DATE: ACCOUNT NO: [id number] ROOM NO: AGE: 76 REPORT TYPE: ELECTROCARDIOGRAM SEX: F ADMITTING PHYSICIAN:Kojo Centeno MD ATTENDING PHYSICIAN:Kojo Centeno MD Order: [id number] Test Reason : PRE-OP CLEARANCE AGE Test Date/Time Stamp: MonNov 16 2021 17:15:40 Blood Pressure : / mmHG Vent. Rate : 083 BPM Atrial Rate : 083 BPM P-R Int : 106 ms QRS Dur : 084 ms QT Int : 396 ms P-R-T Axes : 043 045 073 degree s QTc Int : 465 ms Sinus rhythm with short NH Incomplete right bundle branch block Borderline ECG No previous ECGs available Confirmed by JAIME ABEBE MD ([id number]) on 11/19/2021 10:54:38 AM Referred By: Kojo Centeno Confirmed by:JAIME Beal MD Electronically Signed by Jaime Abebe MD on 11/06 02/25 at 1054 PATIENT NAME: CHAVO MARTIN [id number]
[2023-06-28 15:11] VITALS: BMI 31.4
[2023-06-28] MEDS ORDERED: ACETAMINOPHEN 325 MG TABLET PO PRN (15:17)
[2023-06-28] MEDS ORDERED: DIPHENHYDRAMINE 25 MG TAB/CAP PO PRN (15:18)
[2023-06-28] MEDS ORDERED: LOPERAMIDE HCL 2 MG CAPSULE PO PRN (15:19)
[2023-06-28] MEDS ORDERED: ONDANSETRON 4 MG/2 ML VIAL IV PRN (15:20)
[2023-06-28] MEDS ORDERED: POLYETHYL GLY 3350 17 GM/DOSE PO PRN (15:20)
[2023-06-28 16:29] LABS: Protime INR 1.05
[2023-06-28 16:32] LABS: Absolute Lymphocytes (CBC) 1.6 K/uL (0.7-4.9); Hematocrit 23.5 % (36.0-45.0); MCV 68.1 fL (80-100); MPV 8.1 fL (7.6-11.3); Platelets 284 thou/uL (152-406); RBC Red Blood Cell Count 3.45 M/uL (3.86-4.86)
[2023-06-28 16:38] LABS: Blood Morphology Comment NOTED (NOT SEEN); Hypochromasia 1+; Platelet Estimate ADEQ; White Blood Cell Scan OK (OK)
[2023-06-28 17:05] LABS: ALT/SGPT 17 U/L (13-56); AST/SGOT 13 U/L (15-37); Albumin 3.3 g/dL (3.4-5.0); Alkaline Phosphatase 104 U/L (45-117); BUN Blood Urea Nitrogen 18 mg/dL (7-18); Bicarbonate 26 mEq/L (21-32); Bilirubin Total 0.3 mg/dL (0.2-1.0); Ferritin 4.1 ng/mL (8-388); Glomerular Filtration Rate 72 ml/min (=/>90); Glucose Level 91 mg/dL (74-106); Potassium 3.9 mEq/L (3.5-5.1); Protein, Total 7.9 g/dL (6.4-8.2); Sodium Level 138 mEq/L (136-145)
[2023-06-28 17:06] LABS: Bilirubin Direct < 0.1 mg/dL (0-0.2); Bilirubin Indirect, Calculated ND mg/dL (0.2-0.8)
--- NOTE | 2023-06-28 20:06 | RAD REPORT ---
EXAM DESCRIPTION: CTAbdomen Pelvis W Contrast - 06/28/2023 7:17 pm CLINICAL HISTORY: Abdominal pain. short of breath, anemia COMPARISON: No comparisons TECHNIQUE: Biphasic CT imaging of the abdomen and pelvis was performed with 100 ml non-ionic IV cont rast. All CT scans are performed using dose optimization technique as appropriate and may include automated exposure control or mA/KV adjustment according to patient size. FINDINGS: The lung bases are clear. The liver contains a 25 mm cyst medial right lobe of the liver. No aggressive liver lesion or biliary dilatation. Cholelithiasis. Spleen, pancreas, adrenal glands and kidneys are within normal limits. No bowel obstruction, free air, free fluid or abscess. Advanced diverticulosis coli of the sigmoid co hernandez. Moderate fecal retention is present as well. The appendix is normal. No evidence of significant lymphadenopathy. Left total hip arthroplasty. Postsurgical changes with hardware in place lumbar spine. IMPRESSION: No acute intra-abdominal or pelvic finding. Prominent diverticulosis coli of the sigmoid colon is present with moderate fecal retention. Cholelithiasis.
--- NOTE | 2023-06-28 20:40 | RAD REPORT ---
EXAM DESCRIPTION: RAD - Chest Pa And Lat (2 Views) - 06/28/2023 7:52 pm CLINICAL HISTORY: short of breath, anemia Chest pain. TECHNIQUE: PA and lateral views of the chest were obtained. FINDINGS: The lungs are hyperexpanded compatible with COPD. The heart is upper limit of normal in si ze. No fracture or aggressive bony process. IMPRESSION: COPD without acute process identified. The USPSTF recommends annual screening for lung cancer with low-dose CT (LDCT) in adults aged 50 to 8 0 years who have a 20 pack-year smoking history and currently smoke or have quit within the past 15 y ears.
[2023-06-28] MEDS ORDERED: NA CHLORIDE 0.9% 250 ML ONE (22:28)
[2023-06-29] MEDS ORDERED: NA CHLORIDE 0.9% 250 ML ONE (02:38)
[2023-06-29 06:43] LABS: Absolute Lymphocytes (CBC) 1.8 K/uL (0.7-4.9); Hematocrit 29.1 % (36.0-45.0); Lymphocytes % 36.6 % (15.3-44.8); MCV 72.2 fL (80-100); MPV 7.7 fL (7.6-11.3); Platelets 249 thou/uL (152-406); RBC Red Blood Cell Count 4.03 M/uL (3.86-4.86)
[2023-06-29 06:45] LABS: Magnesium 2.2 mg/dL (1.6-2.4); Potassium 4.6 mEq/L (3.5-5.1)
[2023-06-29 09:00] VITALS: TEMP 98.3
[2023-06-29] MEDS: GABAPENTIN 300 MG CAP PO SCH ×2 (09:00→09:37)
[2023-06-29 09:25] LABS: Hematocrit 33.6 % (36.0-45.0)
[2023-06-29 09:37] VITALS: BP 138/50
[2023-06-29 11:39] VITALS: O2SAT 96
--- NOTE | 2023-06-29 13:01 | P.DS ---
Admission Date: 06/28/23 Discharge Date: 06/29/23 Disposition: ROUTINE DISCHARGE Discharge Condition: FAIR Hospital Course: I CALLED CHAVO IN I HAD A PANIC RESULT CALL FROM [employer] ABOUT HER HG BEING LOW AT 7.3. SHE HAS DYSPNEA, WEAKNESS AND FATIGUE. SHE WAS GIVEN TWO UNITS OF PACKED RBCS. SHE IS STABLE TO GO HOME. SHE WILL GO TO LOCAL GI DOCTOR FOR EGD AND CRC. 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 Vital Signs/Physical Exam: Temp Pulse Resp BP Pulse Ox 98.3 F 78 18 138/50 L 96 06/29/23 08:00 06/29/23 08:00 06/29/23 08:00 06/29/23 09:36 06/29/23 08:00 Laboratory Data at Discharge: WBC 5.00 thou/uL (4.3-10.9) 06/29/23 06:16 Hgb 10.8 g/dL (12.0-15.0) L D 06/29/23 09:10 Hct 33.6 % (36.0-45.0) L 06/29/23 09:10 Plt Count 249 thou/uL (152-406) 06/29/23 06:16 PT 11.6 SECONDS (9.5-12.5) 06/28/23 15:42 INR 1.05 06/28/23 15:42 APTT 33.1 SECONDS (24.3-36.9) 06/28/23 15:42 Sodium 140 mEq/L (136-145) 06/29/23 06:16 Potassium 4.6 mEq/L (3.5-5.1) D 06/29/23 06:16 BUN 13 mg/dL (7-18) 06/29/23 06:16 Creatinine 0.79 mg/dL (0.55-1.02) 06/29/23 06:16 Glucose 89 mg/dL (74-106) 06/29/23 06:16 Magnesium 2.2 mg/dL (1.6-2.4) 06/29/23 06:16 Total Bilirubin 0.3 mg/dL (0.2-1.0) 06/28/23 15:42 AST 13 U/L (15-37) L 06/28/23 15:42 ALT 17 U/L (13-56) 06/28/23 15:42 Alkaline Phosphatase 104 U/L (45-117) 06/28/23 15:42 Home Medications: Aspirin [Aspirin EC 81 MG] 81 mg PO DAILY 06/28/23 Biotin 10,000 mcg PO DAILY 06/28/23 Calcium Carbonate [Calcium] 750 mg PO DAILY 06/28/23 Cholecalciferol (Vitamin D3) [Vitamin D 5,000 Iu Cap] 5,000 unit PO DAILY 06/28/23 Famotidine 20 mg PO M,W,F 06/28/23 Gabapentin 300 mg PO DAILY 06/28/23 Zinc Gluconate [Zinc] 50 mg PO DAILY 06/28/23 Followup: Jose Miguel Dorman MD [Primary Care Provider] -
[2023-06-30] MEDS ORDERED: FAMOTIDINE 20 MG TAB PO SCH (17:00)
--- NOTE | 2023-07-03 12:18 | EKG ---
Test Date: 2023-06-28 Test Time: 15:34:16 [employer] Operator: DOYLE MEASUREMENT RESULTS: Intervals: Rate: 77 MA: QRSD: 136 QT: 426 QTc: 482 [place]: P: 39 MA: QRS: -1 T: 33 INTERPRETIVE STATEMENTS: Atrial flutter with 4:1 AV conduction Nonspecific intraventricular block Abnormal ECG No previous ECG available for comparison Electronically Signed On 07-03-23 12:14:48 CDT by Ppaa Resendez
== END 2023-06-29 10:06 | disposition home or self-care (01) ==
LOC: 4TH 14:09
PROVIDERS: ADMIT Internal Medicine; ATTEND Internal Medicine
PROC: 30233N1 Transfusion of Nonautologous Red Blood Cells into Peripheral Vein, Percutaneous Approach (ICD-10-PCS; principal; 2023-06-28)
DX: D64.9 Anemia, unspecified (principal); R06.00 Dyspnea, unspecified; R53.1 Weakness; R53.83 Other fatigue
CPT/HCPCS: 87040; 85025 ×2; 80048 ×2; 36415 ×2; 86900; 83735; 86850; 85610; 86901; 80076; 85730; 86920 ×2; 85018; 85014; 82728; 82607; 74177; 71046; 36430; Q9967; G0378 ×2; P9016 ×2; J7050 ×2; 93005